=== PATIENT | male | born 1940 | race Caucasian/White ===

== ENCOUNTER 2017-04-08 19:11 | Inpatient (IN) | payer MEDICARE ==
[~2017-04-08] VITALS: Ht 180.3 cm; Wt 102.1 kg
[~2017-04-08 19:11] MED LIST: AMLO-264 PO; BACL-19 PO; CHOL400T2 PO; DOXA2TAB9 PO; METF850T2 PO; METO200T5 PO; PRAV20TA2 PO; SPIR25TA3 PO; SUCR1TAB33 PO; VALS1TAB19 PO
[2017-04-08] MEDS ORDERED: SODIUM CHLORIDE FLUSH 10ML SYR IVF ONE (19:30)
[2017-04-08] MEDS ORDERED: SODIUM CHLORIDE 0.9% 1,000ML IVBOLUS ONE (19:30)
[2017-04-08 19:57] LABS: HEMATOCRIT 39.5 % (39.2-51.8); HEMOGLOBIN 12.3 g/dL (13.7-18.0)
[2017-04-08 19:58] LABS: BLOOD UREA NITROGEN 16 mg/dL (7-18)
[2017-04-08 20:03] LABS: IS PT STATUS REG ER OR PRE ER? YES
[2017-04-08] MEDS ORDERED: SODIUM CHLORIDE 0.9%, 500ML IVBOLUS ONE (21:30)
[2017-04-08] MEDS ORDERED: MAGNESIUM SULFATE PMX 2GM/50ML 50 ML IV ONE (23:00)
[2017-04-08] MEDS ORDERED: GLUCAGON 1 MG IM PRN (23:00)
[2017-04-08] MEDS ORDERED: ONDANSETRON 2MG/ML, 2ML IVPush PRN (23:00)
[2017-04-08] MEDS ORDERED: DEXTROSE 50%, 50ML SYRINGE IVPush PRN (23:00)
[2017-04-08] MEDS ORDERED: DEXTROSE 4 GM TAB.CHEW PO PRN (23:00)
[2017-04-08] MEDS ORDERED: ACETAMINOPHEN 325 MG TABLET PO PRN (23:00)
[2017-04-09] MEDS: PLEASE ENTER WEIGHT MC SCH ×2 (00:56→05:30)
[2017-04-09] MEDS: SODIUM CHLORIDE 0.9% 1,000 ML IV SCH ×3 (02:19→22:43)
[2017-04-09 05:11] LABS: HEMATOCRIT 36.6 % (39.2-51.8); HEMOGLOBIN 11.8 g/dL (13.7-18.0); WHITE BLOOD COUNT 8.8 x10^3/uL (3.4-10)
[2017-04-09 05:21] LABS: BLOOD UREA NITROGEN 15 mg/dL (7-18)
[2017-04-09] MEDS: INSULIN ASPART 100 UNITS/ML, PEN SQ-INSULIN SCH ×4 (07:40→21:47)
[2017-04-09] MEDS ORDERED: ENOXAPARIN 30 MG/0.3 ML SQ SCH (09:00)
[2017-04-09] MEDS: DOXAZOSIN 2MG TABLET PO SCH (09:06)
[2017-04-09] MEDS: SODIUM CHLORIDE FLUSH 10ML SYR IVF SCH ×2 (09:09→21:47)
[2017-04-09] MEDS ORDERED: SODIUM PHOSPHATE 20 MMOL in SODIUM CHLORIDE 0.9% 500 ML IV ONE (12:00)
[2017-04-09] MEDS: CEFTRIAXONE PMX 1GM/50ML 50 ML IV SCH (12:08)
[2017-04-09] MEDS: LACTOBACILLUS CHEW TABLET PO SCH ×3 (12:08→21:46)
[2017-04-09] MEDS: METOPROLOL TARTRATE 25 MG TABLET PO SCH ×2 (12:57→17:33)
[2017-04-09 13:57] VITALS: BP 112/63
[2017-04-09 16:24] VITALS: BP 112/63
[2017-04-09 16:24] LABS: IS PT STATUS REG ER OR PRE ER? NO
[2017-04-09 19:30] VITALS: BP_SYST 107; BP_SYST 78; BP_SYST 86; BP_DIAS 54; BP_DIAS 60; BP_DIAS 67
[2017-04-09 21:01] LABS: IS PT STATUS REG ER OR PRE ER? NO
[2017-04-10 01:38] VITALS: BP 92/61
[2017-04-10] MEDS: METOPROLOL TARTRATE 25 MG TABLET PO SCH (05:49)
[2017-04-10] MEDS: LACTOBACILLUS CHEW TABLET PO SCH ×4 (05:49→21:02)
[2017-04-10 07:06] LABS: HEMATOCRIT 36.1 % (39.2-51.8); HEMOGLOBIN 11.4 g/dL (13.7-18.0); WHITE BLOOD COUNT 5.9 x10^3/uL (3.4-10)
[2017-04-10 07:10] LABS: BLOOD UREA NITROGEN 12 mg/dL (7-18)
[2017-04-10 07:16] LABS: IS PT STATUS REG ER OR PRE ER? NO
[2017-04-10] MEDS: SODIUM CHLORIDE FLUSH 10ML SYR IVF SCH ×2 (08:45→21:02)
[2017-04-10] MEDS: INSULIN ASPART 100 UNITS/ML, PEN SQ-INSULIN SCH ×4 (08:46→20:52)
[2017-04-10] MEDS: DOXAZOSIN 2MG TABLET PO SCH (08:47)
[2017-04-10 09:01] VITALS: BP 99/69
[2017-04-10] MEDS: ENOXAPARIN 40 MG/0.4 ML SQ SCH (09:04)
[2017-04-10] MEDS: SODIUM CHLORIDE 0.9% 1,000 ML IV SCH ×2 (09:04→16:44)
[2017-04-10] MEDS: DIGOXIN 0.25 MG TABLET PO SCH (10:49)
[2017-04-10] MEDS: CEFTRIAXONE PMX 1GM/50ML 50 ML IV SCH (11:01)
[2017-04-10 14:46] VITALS: BP 103/63
[2017-04-10 20:00] VITALS: BP 138/99
[2017-04-11 00:49] VITALS: BP 140/96
[2017-04-11] MEDS: SODIUM CHLORIDE 0.9% 1,000 ML IV SCH ×2 (01:48→09:00)
[2017-04-11] MEDS: LACTOBACILLUS CHEW TABLET PO SCH ×2 (05:27→11:11)
[2017-04-11 05:50] LABS: HEMOGLOBIN 10.7 g/dL (13.7-18.0); WHITE BLOOD COUNT 5.7 x10^3/uL (3.4-10)
[2017-04-11 06:02] LABS: BLOOD UREA NITROGEN 12 mg/dL (7-18)
[2017-04-11] MEDS: INSULIN ASPART 100 UNITS/ML, PEN SQ-INSULIN SCH ×2 (07:00→10:50)
[2017-04-11 07:59] VITALS: BP 148/86
[2017-04-11] MEDS: SODIUM CHLORIDE FLUSH 10ML SYR IVF SCH (09:06)
[2017-04-11] MEDS: DIGOXIN 0.25 MG TABLET PO SCH (09:06)
[2017-04-11] MEDS: ENOXAPARIN 40 MG/0.4 ML SQ SCH (09:07)
[2017-04-11 10:47] VITALS: BP_SYST 114; BP_SYST 133; BP_SYST 90; BP_DIAS 61; BP_DIAS 79; BP_DIAS 80
[2017-04-11] MEDS: CEFTRIAXONE PMX 1GM/50ML 50 ML IV SCH (11:11)
[2017-04-11] MEDS ORDERED: CIPR500T87 PO (12:18)
[2017-04-11] MEDS ORDERED: ACID1TAB7 PO (12:18)
[2017-04-11] MEDS ORDERED: DIGO250T PO (12:18)
[2017-04-11 13:27] VITALS: BP 119/90
== END 2017-04-11 14:21 | disposition home health service (06) | DRG 308 ==
LOC: SUATTDRO 22:33 → ED 23:03 → EDIP 23:10 → 4EST 04-09 08:06 → DCLOUNGE 04-11 13:50
PROVIDERS: ADMIT Hospitalist; ATTEND Hospitalist
DX: I48.0 Paroxysmal atrial fibrillation (principal); J18.9 Pneumonia, unspecified organism; D68.69 Other thrombophilia; E11.22 Type 2 diabetes mellitus with diabetic chronic kidney disease; N18.3 Chronic kidney disease, stage 3 (moderate); E86.1 Hypovolemia; Q21.1 Atrial septal defect; N39.0 Urinary tract infection, site not specified; J98.11 Atelectasis; I95.1 Orthostatic hypotension; W19.XXXA Unspecified fall, initial encounter; E86.9 Volume depletion, unspecified; E78.00 Pure hypercholesterolemia, unspecified; E66.9 Obesity, unspecified; I12.9 Hypertensive chronic kidney disease with stage 1 through stage 4 chronic kidney disease, or unspecified chronic kidney disease; R29.6 Repeated falls; R71.8 Other abnormality of red blood cells; E78.5 Hyperlipidemia, unspecified; K21.9 Gastro-esophageal reflux disease without esophagitis; N40.0 Benign prostatic hyperplasia without lower urinary tract symptoms; Y93.01 Activity, walking, marching and hiking; Y92.000 Kitchen of unspecified non-institutional (private) residence as the place of occurrence of the external cause; Y99.8 Other external cause status; Z82.49 Family history of ischemic heart disease and other diseases of the circulatory system; Z83.3 Family history of diabetes mellitus; Z87.11 Personal history of peptic ulcer disease; Z87.891 Personal history of nicotine dependence; Z98.84 Bariatric surgery status; Z90.49 Acquired absence of other specified parts of digestive tract; Z79.899 Other long term (current) drug therapy; Z68.31 Body mass index [BMI] 31.0-31.9, adult; Z79.84 Long term (current) use of oral hypoglycemic drugs; T46.5X5A Adverse effect of other antihypertensive drugs, initial encounter
CPT/HCPCS: 36415; 71010; 80048; 81001; 82040; 82533; 82607; 82962; 83735; 83880; 84100; 84439; 84443; 84484; 85025; 87086; 93005; 93306; 96361; 96374; J0696; J1650; J1815; J3475; J7030; J7040

== ENCOUNTER → 2017-05-14 | Outpatient (CLI) | payer MEDICARE, OTHER ==
[~2017-05-14] MED LIST changes: +ACID1TAB7 PO; +CIPR500T87 PO; +DIGO250T PO; +REGADENOSON 0.4 MG/5 ML SYRINGE ONE
== END ==
LOC: CFH 08:23
PROVIDERS: ATTEND Internal Medicine Cardiovascular Disease
DX: R07.89 Other chest pain (principal)
CPT/HCPCS: 78452; 93017; A9502; J2785

== ENCOUNTER 2017-05-30 09:50 | Day surgery (SDC) | payer MEDICARE, OTHER ==
[~2017-05-30] VITALS: Ht 180.3 cm; Wt 100.0 kg
[~2017-05-30 09:50] MED LIST changes: -REGADENOSON 0.4 MG/5 ML SYRINGE ONE
[2017-05-30 10:39] VITALS: BP 150/97
[2017-05-30] MEDS ORDERED: METO-282 PO (11:01)
[2017-05-30] MEDS ORDERED: [UNRECOGNIZED DRUG - OTHER] (11:01)
[2017-05-30] MEDS ORDERED: PENT100C2 PO (11:01)
[2017-05-30] MEDS ORDERED: AMLO5TAB2 PO (11:01)
[2017-05-30 11:07] LABS: BASOPHILS # (AUTO) 0.04 x10^3/uL (0-0.1); BASOPHILS % (AUTO) 1 % (0-1); EOSINOPHILS # (AUTO) 0.12 x10^3/uL (0-0.4); EOSINOPHILS % (AUTO) 2 % (1-7); LYMPHOCYTES # (AUTO) 1.87 x10^3/uL (1-3.4); LYMPHOCYTES % (AUTO) 28 % (22-44); MD NO; MEAN CORPUSCULAR HEMOGLOBIN 22.4 pg (27.5-34.5); MEAN CORPUSCULAR HGB CONC 31.2 g/dL (33.2-36.2); MEAN CORPUSCULAR VOLUME 71.9 fL (81-97); MEAN PLATELET VOLUME 9.4 fL (7.4-10.4); MONOCYTES % (AUTO) 10 % (2-9); NEUTROPHILS % (AUTO) 60 % (42-75); PLATELET COUNT 252 x10^3/uL (130-400); RED BLOOD COUNT 4.83 x10^6/uL (4.38-5.82); RED CELL DISTRIBUTION WIDTH 20.3 % (9.4-14.8)
[2017-05-30] MEDS ORDERED: APIX5TAB PO (11:08)
[2017-05-30 11:18] LABS: ANION GAP 6 mmol/L (5-15); CALCIUM 8.2 mg/dL (8.5-10.1); CHLORIDE 103 mmol/L (98-107); CREATININE 1.04 mg/dL (0.7-1.3)
[2017-05-30] MEDS ORDERED: PROPOFOL 10 MG/ML, 20ML ONE (12:03)
== END 2017-05-30 13:21 | disposition home or self-care (01) ==
LOC: CACL 09:50
PROVIDERS: ATTEND Internal Medicine Cardiovascular Disease
DX: I48.2 Chronic atrial fibrillation (principal); I10 Essential (primary) hypertension; E11.9 Type 2 diabetes mellitus without complications; Z79.84 Long term (current) use of oral hypoglycemic drugs; Z87.891 Personal history of nicotine dependence; E66.9 Obesity, unspecified; Z68.30 Body mass index [BMI] 30.0-30.9, adult; Z79.01 Long term (current) use of anticoagulants; E78.2 Mixed hyperlipidemia
CPT/HCPCS: 36415; 80048; 85025; 92960; 93005; J2704

== ENCOUNTER 2018-06-19 09:23 | Emergency (ER) | payer MEDICARE, OTHER ==
[~2018-06-19] VITALS: Ht 180.3 cm; Wt 96.5 kg
[~2018-06-19 09:23] MED LIST changes: +AMIO200T42 PO; +AMIT25TA PO; +AMLO-150 PO; +AMLO10TA8 PO; +APIX5TAB PO; +ASPI500T16 PO; +METF850T10 PO; -METF850T2 PO; +METO-282 PO; +METO200T47 PO; -METO200T5 PO; +PENT100C2 PO; -SPIR25TA3 PO; +SPIR25TA5 PO; +TIMO5DRO28 LEFTEYE; +[UNRECOGNIZED DRUG - OTHER]
--- NOTE | 2018-06-19 10:08 | NUR ---
REPORT FROM CHAKA MICHAEL, ASSUME CARE OF PATIENT AT THIS TIME.
--- NOTE | 2018-06-19 10:29 | NUR ---
UA COLLECTED/SENT TO LAB. PT TO XRAY. PT AND FAMILY UPDATED ON POC. CALL LIGHT WITHIN REACH.
[2018-06-19 10:50] LABS: CULTURE INDICATED? YES; MICROSCOPIC INDICATED
[2018-06-19 11:22] LABS: BASOPHILS # (AUTO) 0.03 x10^3/uL (0-0.1); BASOPHILS % (AUTO) 0 % (0-1); EOSINOPHILS # (AUTO) 0.03 x10^3/uL (0-0.4); EOSINOPHILS % (AUTO) 0 % (1-7); LYMPHOCYTES # (AUTO) 1.56 x10^3/uL (1-3.4); LYMPHOCYTES % (AUTO) 23 % (22-44); MD NO; MEAN CORPUSCULAR HEMOGLOBIN 21.2 pg (27.5-34.5); MEAN CORPUSCULAR HGB CONC 30.2 g/dL (33.2-36.2); MEAN CORPUSCULAR VOLUME 70.1 fL (81-97); MEAN PLATELET VOLUME 8.5 fL (7.4-10.4); MONOCYTES # (AUTO) 0.86 x10^3/uL (0.2-0.8); MONOCYTES % (AUTO) 13 % (2-9); NEUTROPHILS # (AUTO) 4.44 x10^3/uL (1.8-6.8); NEUTROPHILS % (AUTO) 64 % (42-75); PLATELET COUNT 257 x10^3/uL (130-400); RED BLOOD COUNT 4.46 x10^6/uL (4.38-5.82); RED CELL DISTRIBUTION WIDTH 20.9 % (9.4-14.8)
[2018-06-19 11:25] LABS: ALANINE AMINOTRANSFERASE 27 U/L (12-78); ANION GAP 11 mmol/L (5-15); CALCIUM 8.9 mg/dL (8.5-10.1); CHLORIDE 99 mmol/L (98-107)
[2018-06-19 11:28] LABS: ALKALINE PHOSPHATASE 111 U/L (45-117); BILIRUBIN,TOTAL 0.9 mg/dL (0.2-1.0); CREATININE 1.62 mg/dL (0.7-1.3); TOTAL PROTEIN 7.7 g/dL (6.4-8.2)
[2018-06-19] MEDS ORDERED: CEFDINIR 300 MG CAPSULE ONE (11:48)
[2018-06-19] MEDS ORDERED: CEFDINIR 300 MG CAPSULE PO ONE (12:00)
[2018-06-19 12:05] VITALS: BP 158/84
--- NOTE | 2018-06-19 12:08 | NUR ---
PT MEDICATED PER ERP ORDER. PT DISCHARGED HOME, ABLE TO AMBULATE OUT WITH CANE.
== END 2018-06-19 12:11 | disposition home or self-care (01) ==
LOC: ED 11:12
DX: N30.00 Acute cystitis without hematuria (principal); I10 Essential (primary) hypertension; E11.9 Type 2 diabetes mellitus without complications; E78.00 Pure hypercholesterolemia, unspecified; K21.9 Gastro-esophageal reflux disease without esophagitis; Z87.891 Personal history of nicotine dependence
CPT/HCPCS: 36415; 71045; 80053; 81001; 85025; 87086; 93005; 99284

== ENCOUNTER 2018-08-19 13:08 | Inpatient (IN) | payer MEDICARE ==
[~2018-08-19] VITALS: Ht 180.3 cm; Wt 95.8 kg
--- NOTE | 2018-08-19 13:44 | NUR ---
pt presented to ed with shortness of breath and weakness for a few months. pt placed in room and placed on bp, cardiac and cont. pulse oximeter. ekg done in triage. pt with hx: afib and dm. assessment completed. iv started. call light in reach.
[2018-08-19 14:06] LABS: INTERNATIONAL NORMALIZED RATIO 1.11 (0.93-1.1); MEAN CORPUSCULAR HEMOGLOBIN 22.1 pg (27.5-34.5); MEAN CORPUSCULAR HGB CONC 30.5 g/dL (33.2-36.2); MEAN CORPUSCULAR VOLUME 72.4 fL (81-97); MEAN PLATELET VOLUME 8.1 fL (7.4-10.4); PLATELET COUNT 306 x10^3/uL (130-400); PROTHROMBIN TIME 11.6 Seconds (9.6-11.5); RED BLOOD COUNT 4.13 x10^6/uL (4.38-5.82); RED CELL DISTRIBUTION WIDTH 20.6 % (9.4-14.8)
[2018-08-19 14:09] LABS: ALANINE AMINOTRANSFERASE 29 U/L (12-78); ANION GAP 12 mmol/L (5-15); CALCIUM 8.2 mg/dL (8.5-10.1); CHLORIDE 104 mmol/L (98-107); CREATININE 1.06 mg/dL (0.7-1.3)
[2018-08-19 14:13] LABS: ALKALINE PHOSPHATASE 115 U/L (45-117); BILIRUBIN,TOTAL 0.6 mg/dL (0.2-1.0); TOTAL PROTEIN 6.9 g/dL (6.4-8.2); TROPONIN I < 0.015 ng/mL (0.000-0.045)
[2018-08-19 14:27] LABS: MD YES
[2018-08-19 14:35] LABS: BASOS#(MANUAL) 0.16 x10^3/uL (0-0.1); BASOS% (MANUAL) 2 % (0-1); EOS#(MANUAL) 0.32 x10^3/uL (0.0-0.4); EOS% (MANUAL) 4 % (1-7); LYMPH#(MANUAL) 1.54 x10^3/uL (1-3.4); LYMPHS% (MANUAL) 19 % (22-44); MONOS#(MANUAL) 0.65 x10^3/uL (0.3-2.7); MONOS% (MANUAL) 8 % (2-9); NRBC % (MANUAL) 1 % (0-1); REACTIVE LYMPHS # (MANUAL) 0.08 x10^3/uL (0-0); REACTIVE LYMPHS % (MANUAL) 1 % (0-0); SEG#(MANUAL) 5.35 x10^3/uL (1.8-6.8); SEGS% (MANUAL) 66 % (42-75)
[2018-08-19 14:36] LABS: ANISOCYTOSIS 1+; HYPOCHROMIA 1+; OVALOCYTES 1+
[2018-08-19 14:37] LABS: <PLATELET ESTIMATE> ADEQUATE; <PLT MORPHOLOGY> NORMAL PLT MORPH
--- NOTE | 2018-08-19 15:30 | NUR ---
pt restingin bed.
[2018-08-19 15:54] LABS: MICROSCOPIC INDICATED
--- NOTE | 2018-08-19 16:11 | NUR ---
pt taken to ct scan
[2018-08-19 16:21] LABS: CULTURE INDICATED? NO
[2018-08-19] MEDS ORDERED: OMNIPAQUE 350 MG/ML, 100ML BOTTLE ONE (16:29)
[2018-08-19] MEDS ORDERED: AZITHROMYCIN 500 MG in SODIUM CHLORIDE 0.9% 250 ML IV ONE (17:00)
[2018-08-19] MEDS ORDERED: CEFTRIAXONE PMX 1GM/50ML 50 ML IV ONE (17:00)
--- NOTE | 2018-08-19 17:06 | NUR ---
HOSPITALIST AT BEDSIDE.
--- NOTE | 2018-08-19 17:12 | NUR ---
PT DESATS WITH ANY EXERTION.
[2018-08-19] MEDS ORDERED: SODIUM CHLORIDE 0.9% 1,000 ML IV SCH (17:13)
[2018-08-19] MEDS ORDERED: CEFTRIAXONE PMX 1GM/50ML 50 ML ONE (17:16)
--- NOTE | 2018-08-19 17:18 | NUR ---
report given to jesus manuel parikh. blood cultures drawn x 2 and antibiotics hung per md order
[2018-08-19] MEDS: INSULIN LISPRO 100 UNITS/ML, PEN SQ-INSULIN SCH ×2 (17:30→22:01)
[2018-08-19] MEDS ORDERED: ONDANSETRON ODT 4 MG PO PRN (17:30)
[2018-08-19] MEDS ORDERED: ACETAMINOPHEN 325 MG TABLET PO PRN (17:30)
[2018-08-19] MEDS ORDERED: LORazepam 2 MG/ML, 1ML IVPush PRN (18:00)
[2018-08-19] MEDS: TIMOLOL MC SCH (18:00)
[2018-08-19] MEDS: [UNRECOGNIZED DRUG - OTHER] MC SCH (18:00)
[2018-08-19] MEDS ORDERED: ENOXAPARIN 40 MG/0.4 ML SQ SCH (18:00)
[2018-08-19] MEDS ORDERED: ONDANSETRON 2MG/ML, 2ML IVPush PRN (18:00)
[2018-08-19 18:28] LABS: % IRON SATURATION 5 % (20-55); IRON LEVEL 23 mcg/dL (65-175); TOTAL IRON BINDING CAPACITY 437 mcg/dL (250-450); TRANSFERRIN 340 mg/dL (200-360)
[2018-08-19 18:31] LABS: TROPONIN I < 0.015 ng/mL (0.000-0.045)
[2018-08-19 19:09] VITALS: BP 177/81
[2018-08-19 19:30] LABS: HEMOGLOBIN A1C 6.6 % (4.2-6.3)
[2018-08-19] MEDS: DOXYCYCLINE 100 MG in DEXTROSE 5% 250 ML IV SCH (19:43)
[2018-08-19] MEDS: APIXABAN 5 MG TABLET PO SCH (20:50)
[2018-08-19] MEDS ORDERED: ALBUTEROL SULFATE 2.5 MG/3 ML NPPB PRN (21:00)
[2018-08-19] MEDS: PENTOSAN POLYSULFATE SODIUM 200 MG HOMEMEDPO SCH (21:00)
[2018-08-19 22:04] LABS: RAPID INFLUENZA A Negative (Negative); RAPID INFLUENZA B Negative (Negative)
[2018-08-19 23:44] LABS: TROPONIN I < 0.015 ng/mL (0.000-0.045)
[2018-08-20 03:54] VITALS: BP 171/77
[2018-08-20 05:25] LABS: BASOPHILS # (AUTO) 0.01 x10^3/uL (0-0.1); BASOPHILS % (AUTO) 0 % (0-1); EOSINOPHILS # (AUTO) 0.17 x10^3/uL (0-0.4); EOSINOPHILS % (AUTO) 2 % (1-7); LYMPHOCYTES # (AUTO) 0.97 x10^3/uL (1-3.4); LYMPHOCYTES % (AUTO) 12 % (22-44); MD NO; MEAN CORPUSCULAR HEMOGLOBIN 21.9 pg (27.5-34.5); MEAN CORPUSCULAR HGB CONC 30.6 g/dL (33.2-36.2); MEAN CORPUSCULAR VOLUME 71.8 fL (81-97); MEAN PLATELET VOLUME 8.3 fL (7.4-10.4); MONOCYTES # (AUTO) 1.26 x10^3/uL (0.2-0.8); MONOCYTES % (AUTO) 15 % (2-9); NEUTROPHILS # (AUTO) 5.89 x10^3/uL (1.8-6.8); NEUTROPHILS % (AUTO) 71 % (42-75); PLATELET COUNT 284 x10^3/uL (130-400); RED BLOOD COUNT 3.72 x10^6/uL (4.38-5.82); RED CELL DISTRIBUTION WIDTH 20.2 % (9.4-14.8)
[2018-08-20 05:28] LABS: ALANINE AMINOTRANSFERASE 23 U/L (12-78); ALBUMIN 2.6 g/dL (3.4-5.0); CALCIUM 7.7 mg/dL (8.5-10.1); CHOLESTEROL, TOTAL 103 mg/dL (140-239); CREATININE 0.97 mg/dL (0.7-1.3)
[2018-08-20 05:39] LABS: ALKALINE PHOSPHATASE 100 U/L (45-117); ANION GAP 7 mmol/L (5-15); BILIRUBIN,TOTAL 0.9 mg/dL (0.2-1.0); CHLORIDE 103 mmol/L (98-107); CHOL/HDL RATIO 2.5; HDL CHOL % 40 % (26-37); HDL CHOLESTEROL (DIRECT) 41 mg/dL (40-60); LDL CHOLESTEROL,CALCULATED 46 mg/dL (54-169); LDL/HDL RATIO 1.1 (0.5-3.0); TOTAL PROTEIN 6.1 g/dL (6.4-8.2); TRIGLYCERIDES 79 mg/dL (50-200); VLDL CHOLESTEROL 16 mg/dL (0-25)
[2018-08-20] MEDS: DOXYCYCLINE 100 MG in DEXTROSE 5% 250 ML IV SCH ×2 (05:48→18:22)
[2018-08-20 06:45] VITALS: BP 179/78
[2018-08-20] MEDS ORDERED: SODIUM CHLORIDE 0.9% 1,000 ML IV SCH ×2 (07:30→13:47)
[2018-08-20] MEDS: TIMOLOL MC SCH ×2 (08:00→13:54)
[2018-08-20] MEDS: [UNRECOGNIZED DRUG - OTHER] MC SCH ×2 (08:00→13:54)
[2018-08-20] MEDS: PENTOSAN POLYSULFATE SODIUM 200 MG HOMEMEDPO SCH ×2 (09:00→20:53)
[2018-08-20] MEDS: TIMOLOL OPHTH 0.5%, 5ML LEFTEYE SCH (09:00)
[2018-08-20] MEDS ORDERED: AMLODIPINE 5 MG TABLET PO SCH (09:00)
[2018-08-20] MEDS: VANCOMYCIN 50 MG/ML ORAL SUSP PO SCH ×2 (09:36→19:24)
[2018-08-20] MEDS: INSULIN LISPRO 100 UNITS/ML, PEN SQ-INSULIN SCH ×4 (09:37→21:02)
[2018-08-20] MEDS: FERROUS SULFATE 325 MG TABLET PO SCH (09:37)
[2018-08-20] MEDS: METOPROLOL SUCCINATE 50 MG TAB.ER.24H PO SCH (09:38)
[2018-08-20] MEDS: FOLIC ACID 1 MG TABLET PO SCH (09:38)
[2018-08-20] MEDS: THIAMINE 100MG TABLET PO SCH (09:38)
[2018-08-20] MEDS: AMIODARONE 200 MG TABLET PO SCH (09:38)
[2018-08-20] MEDS: APIXABAN 5 MG TABLET PO SCH ×2 (09:38→21:01)
[2018-08-20 12:25] VITALS: BP 160/80
[2018-08-20] MEDS: GUAIFENESIN 200 MG TABLET PO SCH ×3 (12:50→21:01)
[2018-08-20 15:48] LABS: OCCULT BLOOD POSITIVE (NEGATIVE)
[2018-08-20] MEDS: CEFTRIAXONE PMX 1GM/50ML 50 ML IV SCH (16:41)
[2018-08-20 18:50] VITALS: BP 181/82
[2018-08-20 20:00] VITALS: BP 174/80
[2018-08-20] MEDS ORDERED: hydrALAzine 20 MG/ML, 1ML IV ONE (20:00)
[2018-08-20] MEDS ORDERED: AMITRIPTYLINE 25 MG TABLET PO SCH ×2 (21:00)
[2018-08-20] MEDS: AMITRIPTYLINE 25 MG TABLET PO PRN (21:01)
[2018-08-21 00:50] VITALS: BP 160/87
[2018-08-21] MEDS: GUAIFENESIN 200 MG TABLET PO SCH ×4 (05:07→21:13)
[2018-08-21] MEDS: DOXYCYCLINE 100 MG in DEXTROSE 5% 250 ML IV SCH ×2 (05:36→19:10)
[2018-08-21 05:50] LABS: BASOPHILS # (AUTO) 0.05 x10^3/uL (0-0.1); BASOPHILS % (AUTO) 1 % (0-1); EOSINOPHILS # (AUTO) 0.27 x10^3/uL (0-0.4); EOSINOPHILS % (AUTO) 3 % (1-7); LYMPHOCYTES # (AUTO) 1.45 x10^3/uL (1-3.4); LYMPHOCYTES % (AUTO) 14 % (22-44); MD NO; MEAN CORPUSCULAR HEMOGLOBIN 22.1 pg (27.5-34.5); MEAN CORPUSCULAR HGB CONC 30.6 g/dL (33.2-36.2); MEAN CORPUSCULAR VOLUME 72.3 fL (81-97); MEAN PLATELET VOLUME 8.4 fL (7.4-10.4); MONOCYTES # (AUTO) 1.29 x10^3/uL (0.2-0.8); MONOCYTES % (AUTO) 13 % (2-9); NEUTROPHILS # (AUTO) 7.26 x10^3/uL (1.8-6.8); NEUTROPHILS % (AUTO) 70 % (42-75); PLATELET COUNT 293 x10^3/uL (130-400); RED BLOOD COUNT 3.97 x10^6/uL (4.38-5.82); RED CELL DISTRIBUTION WIDTH 20.3 % (9.4-14.8)
[2018-08-21 05:58] LABS: CHLORIDE 106 mmol/L (98-107)
[2018-08-21 06:11] LABS: ALANINE AMINOTRANSFERASE 28 U/L (12-78); ALBUMIN 2.7 g/dL (3.4-5.0); ALKALINE PHOSPHATASE 97 U/L (45-117); ANION GAP 6 mmol/L (5-15); BILIRUBIN,TOTAL 0.8 mg/dL (0.2-1.0); CALCIUM 8.1 mg/dL (8.5-10.1); CREATININE 0.94 mg/dL (0.7-1.3); TOTAL PROTEIN 6.5 g/dL (6.4-8.2)
[2018-08-21 06:44] VITALS: BP 156/81
[2018-08-21] MEDS: INSULIN LISPRO 100 UNITS/ML, PEN SQ-INSULIN SCH ×4 (07:00→21:14)
[2018-08-21] MEDS: TIMOLOL MC SCH ×2 (07:00→15:00)
[2018-08-21] MEDS: [UNRECOGNIZED DRUG - OTHER] MC SCH ×2 (07:00→15:00)
[2018-08-21] MEDS: AMIODARONE 200 MG TABLET PO SCH (08:46)
[2018-08-21] MEDS: VANCOMYCIN 50 MG/ML ORAL SUSP PO SCH ×2 (08:46→19:49)
[2018-08-21] MEDS: AMLODIPINE 10 MG TAB PO SCH (08:46)
[2018-08-21] MEDS: LISINOPRIL 10 MG TABLET PO SCH ×2 (08:46→21:13)
[2018-08-21] MEDS: FERROUS SULFATE 325 MG TABLET PO SCH (08:47)
[2018-08-21] MEDS: THIAMINE 100MG TABLET PO SCH (08:47)
[2018-08-21] MEDS: METOPROLOL SUCCINATE 50 MG TAB.ER.24H PO SCH (08:47)
[2018-08-21] MEDS: APIXABAN 5 MG TABLET PO SCH ×2 (08:47→21:13)
[2018-08-21] MEDS: PENTOSAN POLYSULFATE SODIUM 200 MG HOMEMEDPO SCH ×2 (08:49→21:00)
[2018-08-21] MEDS: TIMOLOL OPHTH 0.5%, 5ML LEFTEYE SCH (08:50)
[2018-08-21] MEDS: FOLIC ACID 1 MG TABLET PO SCH (08:58)
[2018-08-21 12:04] VITALS: BP 138/73
[2018-08-21] MEDS: CEFTRIAXONE PMX 1GM/50ML 50 ML IV SCH (18:09)
[2018-08-21 19:12] VITALS: BP 148/74
[2018-08-21] MEDS: AMITRIPTYLINE 25 MG TABLET PO PRN (21:13)
[2018-08-22 00:31] VITALS: BP 152/80
[2018-08-22] MEDS: GUAIFENESIN 200 MG TABLET PO SCH ×4 (05:20→21:55)
[2018-08-22 05:44] LABS: MEAN CORPUSCULAR HEMOGLOBIN 22.4 pg (27.5-34.5); MEAN CORPUSCULAR HGB CONC 30.8 g/dL (33.2-36.2); MEAN CORPUSCULAR VOLUME 72.5 fL (81-97); MEAN PLATELET VOLUME 8.4 fL (7.4-10.4); PLATELET COUNT 259 x10^3/uL (130-400); RED BLOOD COUNT 3.68 x10^6/uL (4.38-5.82); RED CELL DISTRIBUTION WIDTH 20.6 % (9.4-14.8)
[2018-08-22 06:40] VITALS: BP 154/75
[2018-08-22] MEDS: DOXYCYCLINE 100 MG in DEXTROSE 5% 250 ML IV SCH (06:44)
[2018-08-22 06:51] LABS: MD YES
[2018-08-22 06:53] LABS: EOS#(MANUAL) 0.36 x10^3/uL (0.0-0.4); EOS% (MANUAL) 4 % (1-7); LYMPH#(MANUAL) 1.25 x10^3/uL (1-3.4); LYMPHS% (MANUAL) 14 % (22-44); MONOS#(MANUAL) 0.53 x10^3/uL (0.3-2.7); MONOS% (MANUAL) 6 % (2-9); SEG#(MANUAL) 6.85 x10^3/uL (1.8-6.8); SEGS% (MANUAL) 76 % (42-75)
[2018-08-22 06:54] LABS: ANISOCYTOSIS 1+; HYPOCHROMIA 1+; MICROCYTOSIS 1+; POLYCHROMASIA 1+
[2018-08-22 06:55] LABS: <PLATELET ESTIMATE> ADEQUATE; <PLT MORPHOLOGY> NORMAL PLT MORPH; OVALOCYTES 1+
[2018-08-22] MEDS: INSULIN LISPRO 100 UNITS/ML, PEN SQ-INSULIN SCH ×4 (07:00→20:37)
[2018-08-22] MEDS: TIMOLOL OPHTH 0.5%, 5ML LEFTEYE SCH (09:00)
[2018-08-22] MEDS: PENTOSAN POLYSULFATE SODIUM 200 MG HOMEMEDPO SCH ×2 (09:00→21:00)
[2018-08-22] MEDS: VANCOMYCIN 50 MG/ML ORAL SUSP PO SCH ×2 (10:05→21:53)
[2018-08-22] MEDS: AMLODIPINE 10 MG TAB PO SCH (10:06)
[2018-08-22] MEDS: LISINOPRIL 10 MG TABLET PO SCH ×2 (10:06→21:55)
[2018-08-22] MEDS: AMOXICILLIN/CLAV 875-125MG TABLET PO SCH ×2 (10:06→21:55)
[2018-08-22] MEDS: APIXABAN 5 MG TABLET PO SCH ×2 (10:06→22:02)
[2018-08-22] MEDS: METOPROLOL SUCCINATE 50 MG TAB.ER.24H PO SCH (10:06)
[2018-08-22] MEDS: DOXYCYCLINE 100MG TABLET PO SCH ×2 (10:07→21:54)
[2018-08-22] MEDS: FERROUS SULFATE 325 MG TABLET PO SCH (10:07)
[2018-08-22] MEDS: THIAMINE 100MG TABLET PO SCH (10:07)
[2018-08-22] MEDS: AMIODARONE 200 MG TABLET PO SCH (10:07)
[2018-08-22] MEDS: FOLIC ACID 1 MG TABLET PO SCH (10:07)
[2018-08-22 13:45] VITALS: BP 120/74
[2018-08-22 19:43] VITALS: BP 134/75
[2018-08-22] MEDS: AMITRIPTYLINE 25 MG TABLET PO PRN (21:56)
[2018-08-23 01:36] VITALS: BP 127/71
[2018-08-23] MEDS: GUAIFENESIN 200 MG TABLET PO SCH ×3 (06:04→16:25)
[2018-08-23] MEDS: INSULIN LISPRO 100 UNITS/ML, PEN SQ-INSULIN SCH ×3 (07:00→16:00)
[2018-08-23 07:56] VITALS: BP 117/72
[2018-08-23] MEDS: FERROUS SULFATE 325 MG TABLET PO SCH (08:01)
[2018-08-23] MEDS: FOLIC ACID 1 MG TABLET PO SCH (08:02)
[2018-08-23] MEDS: METOPROLOL SUCCINATE 50 MG TAB.ER.24H PO SCH (08:02)
[2018-08-23] MEDS: APIXABAN 5 MG TABLET PO SCH (08:02)
[2018-08-23] MEDS: DOXYCYCLINE 100MG TABLET PO SCH (08:02)
[2018-08-23] MEDS: AMLODIPINE 10 MG TAB PO SCH (08:03)
[2018-08-23] MEDS: LISINOPRIL 10 MG TABLET PO SCH (08:03)
[2018-08-23] MEDS: AMOXICILLIN/CLAV 875-125MG TABLET PO SCH (08:03)
[2018-08-23] MEDS: THIAMINE 100MG TABLET PO SCH (08:04)
[2018-08-23] MEDS: PENTOSAN POLYSULFATE SODIUM 200 MG HOMEMEDPO SCH (08:07)
[2018-08-23] MEDS: TIMOLOL OPHTH 0.5%, 5ML LEFTEYE SCH (08:07)
[2018-08-23] MEDS: AMIODARONE 200 MG TABLET PO SCH (08:11)
[2018-08-23] MEDS: VANCOMYCIN 50 MG/ML ORAL SUSP PO SCH (10:38)
[2018-08-23 13:34] VITALS: BP 127/66
[2018-08-23] MEDS ORDERED: VANC1VIA3 PO (14:17)
[2018-08-23] MEDS ORDERED: DOXY100T PO (14:17)
[2018-08-23] MEDS ORDERED: FERR-51 PO (14:17)
[2018-08-23] MEDS ORDERED: GUAI200T3 PO (14:17)
[2018-08-23] MEDS ORDERED: AMOX1TAB12 PO (14:17)
[2018-08-23] MEDS ORDERED: LISI-167 PO (14:17)
== END 2018-08-23 20:26 | disposition home or self-care (01) | DRG 193 ==
LOC: ED 15:00 → EDIP 16:41 → 3NE 17:30
PROVIDERS: ADMIT Internal Medicine; ATTEND Internal Medicine
DX: J18.9 Pneumonia, unspecified organism (principal); J96.01 Acute respiratory failure with hypoxia; E87.2 Acidosis; D68.69 Other thrombophilia; D50.9 Iron deficiency anemia, unspecified; E11.9 Type 2 diabetes mellitus without complications; I10 Essential (primary) hypertension; I48.91 Unspecified atrial fibrillation; K21.9 Gastro-esophageal reflux disease without esophagitis; K27.9 Peptic ulcer, site unspecified, unspecified as acute or chronic, without hemorrhage or perforation; R19.5 Other fecal abnormalities; R35.0 Frequency of micturition; N40.1 Benign prostatic hyperplasia with lower urinary tract symptoms; Z79.01 Long term (current) use of anticoagulants; Z82.49 Family history of ischemic heart disease and other diseases of the circulatory system; Z83.3 Family history of diabetes mellitus; Z87.11 Personal history of peptic ulcer disease; Z87.891 Personal history of nicotine dependence; Z98.84 Bariatric surgery status; Z90.49 Acquired absence of other specified parts of digestive tract
CPT/HCPCS: 36415; 71045; 71275; 80053; 80061; 81001; 82272; 82728; 82962; 83036; 83540; 83550; 83605; 83880; 84145; 84439; 84443; 84466; 84484; 85025; 85610; 87040; 87400; 93005; 93306; 96374; G0378; J0696; J3370; J7060; J7613; Q9967; J0360; J1815; J7030

== ENCOUNTER 2018-08-25 11:48 | Inpatient (IN) | payer MEDICARE ==
[~2018-08-25] VITALS: Ht 180.3 cm; Wt 93.9 kg
[~2018-08-25 11:48] MED LIST changes: +AMOX1TAB12 PO; +DOXY100T PO; +FERR-51 PO; +GUAI200T3 PO; +LISI-167 PO; +VANC1VIA3 PO
[2018-08-25] MEDS ORDERED: SODIUM CHLORIDE FLUSH 10ML SYR IVF ONE ×2 (12:30→13:00)
--- NOTE | 2018-08-25 12:34 | NUR ---
MD IS AT THE BEDSIDE FOR CONSULT/ASSESSMENT
--- NOTE | 2018-08-25 12:40 | NUR ---
(+) OCCULT STOOL AT THE BEDSIDE
[2018-08-25 12:42] LABS: ALANINE AMINOTRANSFERASE 47 U/L (12-78); ALBUMIN 2.5 g/dL (3.4-5.0); ANION GAP 9 mmol/L (5-15); CALCIUM 8.1 mg/dL (8.5-10.1); CHLORIDE 109 mmol/L (98-107); CREATININE 1.32 mg/dL (0.7-1.3)
[2018-08-25 12:45] LABS: ALKALINE PHOSPHATASE 98 U/L (45-117); BILIRUBIN,TOTAL 0.4 mg/dL (0.2-1.0); TOTAL PROTEIN 6.6 g/dL (6.4-8.2)
[2018-08-25] MEDS ORDERED: PANTOPRAZOLE 40 MG IV ONE (12:53)
[2018-08-25 12:58] LABS: INTERNATIONAL NORMALIZED RATIO 1.09 (0.93-1.1); PROTHROMBIN TIME 11.4 Seconds (9.6-11.5)
[2018-08-25 13:00] LABS: MEAN CORPUSCULAR HEMOGLOBIN 22.7 pg (27.5-34.5); MEAN CORPUSCULAR HGB CONC 30.5 g/dL (33.2-36.2); MEAN CORPUSCULAR VOLUME 74.6 fL (81-97); MEAN PLATELET VOLUME 8.4 fL (7.4-10.4); PLATELET COUNT 350 x10^3/uL (130-400); RED BLOOD COUNT 3.67 x10^6/uL (4.38-5.82); RED CELL DISTRIBUTION WIDTH 22.5 % (9.4-14.8)
[2018-08-25] MEDS ORDERED: PANTOPRAZOLE 40 MG IV IVPush ONE ×2 (13:00→14:30)
[2018-08-25 13:06] LABS: TROPONIN I < 0.015 ng/mL (0.000-0.045)
[2018-08-25 13:45] LABS: MD YES
[2018-08-25 13:46] LABS: EOS#(MANUAL) 0.91 x10^3/uL (0.0-0.4); EOS% (MANUAL) 10 % (1-7); LYMPH#(MANUAL) 1.82 x10^3/uL (1-3.4); LYMPHS% (MANUAL) 20 % (22-44); MONOS#(MANUAL) 0.91 x10^3/uL (0.3-2.7); MONOS% (MANUAL) 10 % (2-9); SEG#(MANUAL) 5.46 x10^3/uL (1.8-6.8); SEGS% (MANUAL) 60 % (42-75)
[2018-08-25 13:47] LABS: <PLATELET ESTIMATE> ADEQUATE; <PLT MORPHOLOGY> NORMAL PLT MORPH; ANISOCYTOSIS 1+; HYPOCHROMIA 1+; MICROCYTOSIS 1+; OVALOCYTES 1+; POLYCHROMASIA 1+
--- NOTE | 2018-08-25 14:23 | NUR ---
pt resting comfortably on an e.r. gurney. we are awaiting a room assignment for admission. vs are stable and wdl, and i will continue to monitor and treat as ordered, as well as prn.
[2018-08-25] MEDS ORDERED: PANTOPRAZOLE 80 MG in SODIUM CHLORIDE 0.9% 100 ML IV SCH (14:30)
[2018-08-25] MEDS ORDERED: LABETALOL 5 MG/ML SYRINGE IVPush PRN (15:30)
[2018-08-25] MEDS ORDERED: hydrALAzine 20 MG/ML, 1ML IVPush PRN (15:30)
[2018-08-25] MEDS ORDERED: ONDANSETRON 2MG/ML, 2ML IVPush PRN (15:30)
[2018-08-25] MEDS ORDERED: ONDANSETRON ODT 4 MG PO PRN (15:30)
[2018-08-25] MEDS ORDERED: LIDODERM 5% PATCH TD PRN (15:30)
[2018-08-25] MEDS ORDERED: LORazepam 2 MG/ML, 1ML IVPush PRN (15:30)
[2018-08-25] MEDS: INSULIN LISPRO 100 UNITS/ML, PEN SQ-INSULIN SCH ×2 (16:00→21:00)
[2018-08-25 16:25] LABS: HEMOGLOBIN A1C 6.2 % (4.2-6.3)
--- NOTE | 2018-08-25 17:13 | NUR ---
verbal sbar report was exchanged w julián (rn) on the floor for admission. we will begin to prepare for transport at this time.
[2018-08-25 18:00] VITALS: BP 170/80
[2018-08-25 19:17] VITALS: BP 168/73
[2018-08-25 19:20] LABS: FREE T4 (FREE THYROXINE) 1.25 ng/dL (0.76-1.46); TROPONIN I < 0.015 ng/mL (0.000-0.045)
[2018-08-25 19:21] LABS: CLOSTRIDIUM DIFFICILE ANTIGEN NEGATIVE; CLOSTRIDIUM DIFFICILE TOXIN NEGATIVE (Negative)
[2018-08-25] MEDS: GUAIFENESIN 200 MG TABLET PO SCH ×2 (21:00→21:42)
[2018-08-25] MEDS ORDERED: PENTOSAN POLYSULFATE SODIUM 200 MG PO SCH (21:00)
[2018-08-25] MEDS: AMOXICILLIN/CLAV 875-125MG TABLET PO SCH (21:42)
[2018-08-25] MEDS: DOXYCYCLINE 100MG TABLET PO SCH (21:42)
[2018-08-25] MEDS: ZOLPIDEM 5MG TABLET PO PRN (22:45)
[2018-08-26] MEDS: PANTOPRAZOLE 80 MG in SODIUM CHLORIDE 0.9% 100 ML IV SCH ×2 (00:05→11:38)
[2018-08-26] MEDS: VANCOMYCIN 50 MG/ML ORAL SUSP PO SCH ×3 (00:05→21:15)
[2018-08-26] MEDS: POTASSIUM CHLORIDE 20 MEQ, MAGNESIUM SULFATE 2 GM, THIAMINE 200 MG, MVI ADULT 10 ML, FO... IV SCH ×2 (00:42→12:37)
[2018-08-26 01:01] VITALS: BP 117/68
[2018-08-26 01:10] LABS: TROPONIN I < 0.015 ng/mL (0.000-0.045)
[2018-08-26 05:51] LABS: ANION GAP 8 mmol/L (5-15); CALCIUM 7.7 mg/dL (8.5-10.1); CHLORIDE 110 mmol/L (98-107); CHOLESTEROL, TOTAL 88 mg/dL (140-239); CREATININE 1.12 mg/dL (0.7-1.3)
[2018-08-26 05:54] LABS: CHOL/HDL RATIO 4.6; HDL CHOL % 22 % (26-37); HDL CHOLESTEROL (DIRECT) 19 mg/dL (40-60); LDL CHOLESTEROL,CALCULATED 49 mg/dL (54-169); LDL/HDL RATIO 2.6 (0.5-3.0); TRIGLYCERIDES 98 mg/dL (50-200); VLDL CHOLESTEROL 20 mg/dL (0-25)
[2018-08-26 05:55] LABS: MEAN CORPUSCULAR HEMOGLOBIN 22.8 pg (27.5-34.5); MEAN CORPUSCULAR HGB CONC 30.8 g/dL (33.2-36.2); MEAN CORPUSCULAR VOLUME 73.9 fL (81-97); MEAN PLATELET VOLUME 8.4 fL (7.4-10.4); PLATELET COUNT 348 x10^3/uL (130-400); RED BLOOD COUNT 3.47 x10^6/uL (4.38-5.82); RED CELL DISTRIBUTION WIDTH 22.2 % (9.4-14.8)
[2018-08-26] MEDS: GUAIFENESIN 200 MG TABLET PO SCH ×4 (06:03→21:09)
[2018-08-26 06:22] LABS: MD YES
[2018-08-26 06:27] LABS: ANISOCYTOSIS 1+; BAND#(MANUAL) 0.08 x10^3/uL; BANDS%(MANUAL) 1 % (0-7); BASOS#(MANUAL) 0.08 x10^3/uL (0-0.1); BASOS% (MANUAL) 1 % (0-1); EOS#(MANUAL) 0.48 x10^3/uL (0.0-0.4); EOS% (MANUAL) 6 % (1-7); LYMPHS% (MANUAL) 20 % (22-44); MONOS#(MANUAL) 0.96 x10^3/uL (0.3-2.7); MONOS% (MANUAL) 12 % (2-9); SEGS% (MANUAL) 60 % (42-75)
[2018-08-26 06:28] LABS: <PLATELET ESTIMATE> ADEQUATE; <PLT MORPHOLOGY> NORMAL PLT MORPH; HYPOCHROMIA 1+; OVALOCYTES 1+; POLYCHROMASIA 1+
[2018-08-26] MEDS: INSULIN LISPRO 100 UNITS/ML, PEN SQ-INSULIN SCH ×4 (08:22→20:54)
[2018-08-26] MEDS: AMOXICILLIN/CLAV 875-125MG TABLET PO SCH ×2 (08:25→21:09)
[2018-08-26] MEDS: METOPROLOL SUCCINATE 50 MG TAB.ER.24H PO SCH (08:25)
[2018-08-26] MEDS: DOXYCYCLINE 100MG TABLET PO SCH ×2 (08:25→21:09)
[2018-08-26] MEDS: AMLODIPINE 5 MG TABLET PO SCH (08:25)
[2018-08-26] MEDS: FERROUS SULFATE 325 MG TABLET PO SCH (08:25)
[2018-08-26] MEDS: TIMOLOL OPHTH 0.5%, 5ML LEFTEYE SCH (08:27)
[2018-08-26] MEDS: AMIODARONE 200 MG TABLET PO SCH (08:32)
[2018-08-26 09:31] VITALS: BP 148/76
[2018-08-26] MEDS ORDERED: PROPOFOL 10 MG/ML, 50ML ONE (15:03)
[2018-08-26] MEDS ORDERED: FENTANYL PF 100 MCG/2ML IV PRN (15:30)
[2018-08-26] MEDS ORDERED: OXYcodone 5 MG/5 ML ORAL.SOL UDC PO PRN (15:30)
[2018-08-26] MEDS ORDERED: HYDROmorphone 2 MG/ML, 1ML IVPush PRN (15:30)
[2018-08-26] MEDS ORDERED: ACETAMINOPHEN 325 MG TABLET PO PRN (15:30)
[2018-08-26] MEDS ORDERED: hydrALAzine 20 MG/ML, 1ML IV PRN (15:30)
[2018-08-26] MEDS ORDERED: ALBUTEROL SULFATE 2.5 MG/3 ML NPPB PRN (15:30)
[2018-08-26] MEDS ORDERED: MEPERIDINE/PF 25MG/0.5ML IVPush PRN (15:30)
[2018-08-26] MEDS ORDERED: KETOROLAC 30 MG/1 ML IV PRN (15:30)
[2018-08-26] MEDS ORDERED: DIAZEPAM 5 MG/ML, 2ML IVPush PRN (15:30)
[2018-08-26] MEDS ORDERED: LABETALOL 5MG/ML, 20ML IV PRN (15:30)
[2018-08-26] MEDS ORDERED: PROMETHAZINE 25 MG/ML, 1ML IV PRN (15:30)
[2018-08-26 15:59] VITALS: BP 160/76
[2018-08-26] MEDS: PANTOPROZOLE 40MG TABLET PO SCH (18:18)
[2018-08-26 19:31] VITALS: BP 130/51
[2018-08-26] MEDS: ZOLPIDEM 5MG TABLET PO PRN (21:09)
[2018-08-27 01:12] VITALS: BP 125/75
[2018-08-27] MEDS: GUAIFENESIN 200 MG TABLET PO SCH ×4 (05:37→20:50)
[2018-08-27] MEDS: PANTOPROZOLE 40MG TABLET PO SCH ×2 (05:37→16:49)
[2018-08-27] MEDS: INSULIN LISPRO 100 UNITS/ML, PEN SQ-INSULIN SCH ×4 (07:00→21:29)
[2018-08-27 07:20] LABS: ANION GAP 4 mmol/L (5-15); CALCIUM 7.7 mg/dL (8.5-10.1); CHLORIDE 111 mmol/L (98-107); CREATININE 1.15 mg/dL (0.7-1.3); MEAN CORPUSCULAR HEMOGLOBIN 22.1 pg (27.5-34.5); MEAN CORPUSCULAR VOLUME 73.7 fL (81-97); MEAN PLATELET VOLUME 8.7 fL (7.4-10.4); PLATELET COUNT 351 x10^3/uL (130-400); RED BLOOD COUNT 3.54 x10^6/uL (4.38-5.82); RED CELL DISTRIBUTION WIDTH 22.8 % (9.4-14.8)
[2018-08-27 07:36] LABS: BASOPHILS # (AUTO) 0.06 x10^3/uL (0-0.1); BASOPHILS % (AUTO) 1 % (0-1); EOSINOPHILS # (AUTO) 0.47 x10^3/uL (0-0.4); EOSINOPHILS % (AUTO) 6 % (1-7); LYMPHOCYTES # (AUTO) 1.46 x10^3/uL (1-3.4); LYMPHOCYTES % (AUTO) 20 % (22-44); MD SCAN; MONOCYTES # (AUTO) 1.07 x10^3/uL (0.2-0.8); MONOCYTES % (AUTO) 15 % (2-9); NEUTROPHILS # (AUTO) 4.27 x10^3/uL (1.8-6.8); NEUTROPHILS % (AUTO) 58 % (42-75)
[2018-08-27 07:42] VITALS: BP 121/69
[2018-08-27] MEDS: FERROUS SULFATE 325 MG TABLET PO SCH (08:38)
[2018-08-27] MEDS: AMIODARONE 200 MG TABLET PO SCH (08:40)
[2018-08-27] MEDS: AMLODIPINE 5 MG TABLET PO SCH (08:41)
[2018-08-27] MEDS: TIMOLOL OPHTH 0.5%, 5ML LEFTEYE SCH (08:45)
[2018-08-27] MEDS: METOPROLOL SUCCINATE 50 MG TAB.ER.24H PO SCH (08:54)
[2018-08-27 09:00] VITALS: BP_SYST 110; BP_SYST 137; BP_SYST 99; BP_DIAS 64; BP_DIAS 65; BP_DIAS 75
[2018-08-27] MEDS ORDERED: LORazepam 0.5MG TABLET PO PRN (09:30)
[2018-08-27] MEDS ORDERED: SODIUM CHLORIDE 0.9%, 500ML IVBOLUS ONE (09:30)
[2018-08-27] MEDS ORDERED: LORazepam 1MG TABLET PO PRN ×4 (09:30)
[2018-08-27] MEDS ORDERED: LORazepam 2 MG/ML, 1ML IV PRN ×5 (09:30)
[2018-08-27] MEDS: SODIUM CHLORIDE 0.45% 1,000 ML IV SCH ×2 (11:15→17:30)
[2018-08-27 11:30] VITALS: BP 136/84
[2018-08-27] MEDS ORDERED: POTASSIUM CHLORIDE 20 MEQ, MAGNESIUM SULFATE 2 GM, THIAMINE 200 MG, MVI ADULT 10 ML, FO... IV SCH (12:00)
[2018-08-27 14:00] VITALS: BP 146/73
[2018-08-27 20:00] VITALS: BP 138/73
[2018-08-27] MEDS: ZOLPIDEM 5MG TABLET PO PRN (20:50)
[2018-08-27] MEDS: PENTOSAN POLYSULFATE SODIUM 200 MG HOMEMEDPO SCH (20:51)
[2018-08-28 00:53] VITALS: BP 151/83
[2018-08-28] MEDS: SODIUM CHLORIDE 0.45% 1,000 ML IV SCH (01:37)
[2018-08-28] MEDS: GUAIFENESIN 200 MG TABLET PO SCH ×2 (05:07→10:25)
[2018-08-28] MEDS: PANTOPROZOLE 40MG TABLET PO SCH (05:07)
[2018-08-28 06:26] LABS: MEAN CORPUSCULAR HEMOGLOBIN 22.7 pg (27.5-34.5); MEAN CORPUSCULAR HGB CONC 30.5 g/dL (33.2-36.2); MEAN CORPUSCULAR VOLUME 74.3 fL (81-97); MEAN PLATELET VOLUME 8.6 fL (7.4-10.4); PLATELET COUNT 331 x10^3/uL (130-400); RED BLOOD COUNT 3.37 x10^6/uL (4.38-5.82); RED CELL DISTRIBUTION WIDTH 22.5 % (9.4-14.8)
[2018-08-28 06:34] LABS: CHLORIDE 111 mmol/L (98-107)
[2018-08-28 06:49] LABS: BASOPHILS # (AUTO) 0.06 x10^3/uL (0-0.1); BASOPHILS % (AUTO) 1 % (0-1); EOSINOPHILS # (AUTO) 0.77 x10^3/uL (0-0.4); EOSINOPHILS % (AUTO) 10 % (1-7); LYMPHOCYTES # (AUTO) 1.63 x10^3/uL (1-3.4); LYMPHOCYTES % (AUTO) 21 % (22-44); MD SCAN; MONOCYTES # (AUTO) 1.04 x10^3/uL (0.2-0.8); MONOCYTES % (AUTO) 14 % (2-9); NEUTROPHILS # (AUTO) 4.19 x10^3/uL (1.8-6.8); NEUTROPHILS % (AUTO) 55 % (42-75)
[2018-08-28] MEDS: INSULIN LISPRO 100 UNITS/ML, PEN SQ-INSULIN SCH ×2 (07:00→11:00)
[2018-08-28 07:09] LABS: ALANINE AMINOTRANSFERASE 38 U/L (12-78); ALBUMIN 2.2 g/dL (3.4-5.0); ALKALINE PHOSPHATASE 92 U/L (45-117); ANION GAP 6 mmol/L (5-15); BILIRUBIN,TOTAL 0.4 mg/dL (0.2-1.0); CALCIUM 7.6 mg/dL (8.5-10.1); CREATININE 0.98 mg/dL (0.7-1.3); TOTAL PROTEIN 5.7 g/dL (6.4-8.2)
[2018-08-28 07:10] VITALS: BP 148/84
[2018-08-28] MEDS: PENTOSAN POLYSULFATE SODIUM 200 MG HOMEMEDPO SCH (09:00)
[2018-08-28] MEDS: TIMOLOL OPHTH 0.5%, 5ML LEFTEYE SCH (09:00)
[2018-08-28] MEDS ORDERED: PANT40TA5 PO (10:18)
[2018-08-28] MEDS: METOPROLOL SUCCINATE 50 MG TAB.ER.24H PO SCH (10:22)
[2018-08-28] MEDS: FERROUS SULFATE 325 MG TABLET PO SCH (10:22)
[2018-08-28] MEDS: AMLODIPINE 5 MG TABLET PO SCH (10:23)
[2018-08-28] MEDS: AMIODARONE 200 MG TABLET PO SCH (10:23)
== END 2018-08-28 12:34 | DRG 377 ==
LOC: ED 13:53 → EDIP 14:19 → 4WST 17:40 → DCLOUNGE 08-28 12:23
PROVIDERS: ADMIT Hospitalist; ATTEND Hospitalist
PROC: 0DJ08ZZ Inspection of Upper Intestinal Tract, Via Natural or Artificial Opening Endoscopic (ICD-10-PCS; principal; 2018-08-26 15:00)
DX: K28.4 Chronic or unspecified gastrojejunal ulcer with hemorrhage (principal); N17.0 Acute kidney failure with tubular necrosis; D68.9 Coagulation defect, unspecified; D50.0 Iron deficiency anemia secondary to blood loss (chronic); E11.9 Type 2 diabetes mellitus without complications; E78.00 Pure hypercholesterolemia, unspecified; E78.5 Hyperlipidemia, unspecified; K29.71 Gastritis, unspecified, with bleeding; I95.9 Hypotension, unspecified; F10.129 Alcohol abuse with intoxication, unspecified; I10 Essential (primary) hypertension; I48.91 Unspecified atrial fibrillation; K21.9 Gastro-esophageal reflux disease without esophagitis; Z66 Do not resuscitate; Z79.01 Long term (current) use of anticoagulants; Z79.4 Long term (current) use of insulin; Z82.49 Family history of ischemic heart disease and other diseases of the circulatory system; Z83.3 Family history of diabetes mellitus; Z87.01 Personal history of pneumonia (recurrent); Z86.19 Personal history of other infectious and parasitic diseases; Z87.440 Personal history of urinary (tract) infections; Z98.84 Bariatric surgery status; Z79.899 Other long term (current) drug therapy; Z79.84 Long term (current) use of oral hypoglycemic drugs
CPT/HCPCS: 36415; 80048; 80053; 80061; 82962; 83036; 83690; 84439; 84443; 84484; 85025; 85610; 85730; 86850; 86900; 87324; 89055; 93005; 96374; 96375; G0378; J2704; J3370; J3411; J3475; J3480; J7042; C9113; J1815; J7040

== ENCOUNTER 2018-09-28 10:11 | Inpatient (IN) | payer MEDICARE ==
[~2018-09-28] VITALS: Ht 177.8 cm; Wt 95.7 kg
[~2018-09-28 10:11] MED LIST changes: +PANT40TA5 PO
--- NOTE | 2018-09-28 10:25 | NUR ---
DUNIA SANTANA. C/O dizziness. found patient on ground this AM next to bed. Patient does not remember how he got there. Denies pain and no signs of trauma. Patient has been working with his PCP to determine the best BP med for him. He is now on metoprolol, but took two doses of 5mg amlodipine (AM and PM) for high BP yesterday. Patient was instructed by PCP to stop taking amlodipine when he started the metoprolol. MAX noted orthstatic changes from supine to sitting. A&Ox4. at bedside. 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 Will continue to monitor.
[2018-09-28] MEDS ORDERED: SODIUM CHLORIDE FLUSH 10ML SYR IVF ONE (11:00)
--- NOTE | 2018-09-28 11:12 | NUR ---
Patient voided in urinal. UA sent to lab. No other needs at this time.
[2018-09-28 11:30] LABS: MICROSCOPIC NOT IND
[2018-09-28 11:38] LABS: CULTURE INDICATED? NO
[2018-09-28 12:11] LABS: CHLORIDE 105 mmol/L (98-107)
[2018-09-28 12:12] LABS: INTERNATIONAL NORMALIZED RATIO 1.11 (0.93-1.1); PROTHROMBIN TIME 11.6 Seconds (9.6-11.5)
[2018-09-28 12:22] LABS: ALANINE AMINOTRANSFERASE 20 U/L (12-78); ALBUMIN 2.6 g/dL (3.4-5.0); ALKALINE PHOSPHATASE 121 U/L (45-117); ANION GAP 10 mmol/L (5-15); BILIRUBIN,TOTAL 0.3 mg/dL (0.2-1.0); CALCIUM 8.4 mg/dL (8.5-10.1); CREATININE 1.18 mg/dL (0.7-1.3); MEAN CORPUSCULAR HEMOGLOBIN 24.5 pg (27.5-34.5); MEAN CORPUSCULAR HGB CONC 30.5 g/dL (33.2-36.2); MEAN CORPUSCULAR VOLUME 80.3 fL (81-97); MEAN PLATELET VOLUME 7.6 fL (7.4-10.4); PLATELET COUNT 241 x10^3/uL (130-400); RED BLOOD COUNT 3.96 x10^6/uL (4.38-5.82); RED CELL DISTRIBUTION WIDTH 25.5 % (9.4-14.8); TROPONIN I < 0.015 ng/mL (0.000-0.045)
[2018-09-28 12:30] LABS: TOTAL PROTEIN 6.6 g/dL (6.4-8.2)
[2018-09-28 12:46] LABS: BASOPHILS # (AUTO) 0.03 x10^3/uL (0-0.1); BASOPHILS % (AUTO) 1 % (0-1); EOSINOPHILS # (AUTO) 0.32 x10^3/uL (0-0.4); EOSINOPHILS % (AUTO) 6 % (1-7); LYMPHOCYTES % (AUTO) 26 % (22-44); MD SCAN; MONOCYTES # (AUTO) 0.94 x10^3/uL (0.2-0.8); MONOCYTES % (AUTO) 19 % (2-9); NEUTROPHILS % (AUTO) 48 % (42-75)
[2018-09-28] MEDS ORDERED: APIX5TAB PO (12:48)
[2018-09-28] MEDS ORDERED: [UNRECOGNIZED DRUG - OTHER] PO (12:48)
--- NOTE | 2018-09-28 12:52 | NUR ---
VSS. No other needs. Plan is for admit.
--- NOTE | 2018-09-28 13:56 | NUR ---
Resting in [facility]. VSS.
--- NOTE | 2018-09-28 14:49 | NUR ---
Report to ALEC Ramirez.
[2018-09-28 15:46] VITALS: BP 183/84
[2018-09-28] MEDS ORDERED: ACETAMINOPHEN 325 MG TABLET PO PRN (17:00)
[2018-09-28] MEDS ORDERED: TIMOLOL STRENGTH MC SCH (17:00)
[2018-09-28] MEDS ORDERED: DOCUSATE 100 MG CAPSULE PO PRN (17:00)
[2018-09-28] MEDS ORDERED: THIAMINE 200 MG in SODIUM CHLORIDE 0.9% 50 ML IV ONE (17:00)
[2018-09-28] MEDS ORDERED: ONDANSETRON ODT 4 MG PO PRN (17:00)
[2018-09-28] MEDS ORDERED: ONDANSETRON 2MG/ML, 2ML IVPush PRN (17:00)
[2018-09-28 17:21] LABS: TROPONIN I < 0.015 ng/mL (0.000-0.045)
[2018-09-28 20:19] VITALS: BP 132/56
[2018-09-28] MEDS: TIMOLOL OPHTH 0.5%, 5ML LEFTEYE SCH (21:00)
[2018-09-28] MEDS ORDERED: CYAN25009 SL (21:30)
[2018-09-28 21:35] VITALS: BP 169/92
[2018-09-28 21:36] LABS: TROPONIN I 0.018 ng/mL (0.000-0.045)
[2018-09-28 21:37] VITALS: BP 188/86
[2018-09-28 21:40] VITALS: BP 159/81
[2018-09-28 21:45] VITALS: BP 120/82
[2018-09-28] MEDS ORDERED: AFLI2VIA INJ (21:53)
[2018-09-28] MEDS: APIXABAN 5 MG TABLET PO SCH (22:18)
[2018-09-28] MEDS: PANTOPROZOLE 40MG TABLET PO SCH (23:35)
[2018-09-28] MEDS: AMITRIPTYLINE 25 MG TABLET PO SCH (23:35)
[2018-09-28] MEDS: FERROUS SULFATE 325 MG TABLET PO SCH (23:35)
[2018-09-29 01:44] VITALS: BP 145/85
[2018-09-29 03:16] LABS: OCCULT BLOOD POSITIVE (NEGATIVE)
[2018-09-29 04:37] LABS: MEAN CORPUSCULAR HEMOGLOBIN 24.7 pg (27.5-34.5); MEAN CORPUSCULAR HGB CONC 30.9 g/dL (33.2-36.2); MEAN CORPUSCULAR VOLUME 79.9 fL (81-97); PLATELET COUNT 236 x10^3/uL (130-400); RED BLOOD COUNT 3.83 x10^6/uL (4.38-5.82); RED CELL DISTRIBUTION WIDTH 25.8 % (9.4-14.8)
[2018-09-29 04:45] LABS: ALANINE AMINOTRANSFERASE 15 U/L (12-78); ALBUMIN 2.6 g/dL (3.4-5.0); ANION GAP 11 mmol/L (5-15); CALCIUM 7.9 mg/dL (8.5-10.1); CHLORIDE 102 mmol/L (98-107); CREATININE 1.24 mg/dL (0.7-1.3)
[2018-09-29 04:56] LABS: ALKALINE PHOSPHATASE 118 U/L (45-117); BILIRUBIN,TOTAL 0.6 mg/dL (0.2-1.0); TOTAL PROTEIN 6.3 g/dL (6.4-8.2)
[2018-09-29 05:16] LABS: MD YES
[2018-09-29 05:19] LABS: BASOS#(MANUAL) 0.06 x10^3/uL (0-0.1); BASOS% (MANUAL) 1 % (0-1); EOS#(MANUAL) 0.12 x10^3/uL (0.0-0.4); EOS% (MANUAL) 2 % (1-7); LYMPHS% (MANUAL) 19 % (22-44); MONOS#(MANUAL) 0.99 x10^3/uL (0.3-2.7); MONOS% (MANUAL) 17 % (2-9); SEG#(MANUAL) 3.54 x10^3/uL (1.8-6.8); SEGS% (MANUAL) 61 % (42-75)
[2018-09-29 05:20] LABS: <PLATELET ESTIMATE> ADEQUATE; <PLT MORPHOLOGY> NORMAL PLT MORPH; ANISOCYTOSIS 1+; HYPOCHROMIA 1+; MICROCYTOSIS 1+
[2018-09-29] MEDS ORDERED: PANTOPROZOLE 40MG TABLET PO SCH (07:30)
[2018-09-29] MEDS ORDERED: FERROUS SULFATE 325 MG TABLET PO SCH (08:00)
[2018-09-29] MEDS: TAMSULOSIN 0.4 MG CAP.ER.24H PO SCH (09:00)
[2018-09-29] MEDS: THIAMINE 100MG TABLET PO SCH (09:00)
[2018-09-29] MEDS: FERROUS SULFATE 325 MG TABLET PO SCH ×2 (09:00→20:34)
[2018-09-29] MEDS: PANTOPROZOLE 40MG TABLET PO SCH ×2 (09:00→20:34)
[2018-09-29] MEDS: METOPROLOL SUCCINATE 25 MG TAB.ER.24H PO SCH (09:00)
[2018-09-29] MEDS: APIXABAN 5 MG TABLET PO SCH ×2 (09:00→20:35)
[2018-09-29] MEDS: AMIODARONE 200 MG TABLET PO SCH (09:00)
[2018-09-29] MEDS: FOLIC ACID 1 MG TABLET PO SCH (09:00)
[2018-09-29 09:11] VITALS: BP_SYST 101; BP_SYST 125; BP_SYST 172; BP_DIAS 65; BP_DIAS 82; BP_DIAS 83
[2018-09-29 15:00] VITALS: BP 181/91
[2018-09-29] MEDS: LISINOPRIL 10 MG TABLET PO SCH (17:18)
[2018-09-29 19:15] VITALS: BP 168/89
[2018-09-29 19:20] VITALS: BP 171/91
[2018-09-29 19:25] VITALS: BP 152/90
[2018-09-29] MEDS: TIMOLOL OPHTH 0.5%, 5ML LEFTEYE SCH (20:31)
[2018-09-29] MEDS: AMITRIPTYLINE 25 MG TABLET PO SCH (20:34)
[2018-09-30 01:17] VITALS: BP 168/81
[2018-09-30 07:12] VITALS: BP_SYST 115; BP_SYST 156; BP_SYST 93; BP_DIAS 62; BP_DIAS 81
[2018-09-30] MEDS: AMIODARONE 200 MG TABLET PO SCH (08:00)
[2018-09-30] MEDS: PANTOPROZOLE 40MG TABLET PO SCH ×2 (08:00→20:23)
[2018-09-30] MEDS: THIAMINE 100MG TABLET PO SCH (08:00)
[2018-09-30] MEDS: LISINOPRIL 10 MG TABLET PO SCH (08:00)
[2018-09-30] MEDS: TAMSULOSIN 0.4 MG CAP.ER.24H PO SCH (08:00)
[2018-09-30] MEDS: FOLIC ACID 1 MG TABLET PO SCH (08:00)
[2018-09-30] MEDS: METOPROLOL SUCCINATE 25 MG TAB.ER.24H PO SCH (08:00)
[2018-09-30] MEDS: FERROUS SULFATE 325 MG TABLET PO SCH ×2 (08:00→20:22)
[2018-09-30] MEDS: AMLODIPINE 5 MG TABLET PO SCH (08:00)
[2018-09-30 08:15] LABS: BASOPHILS # (AUTO) 0.03 x10^3/uL (0-0.1); BASOPHILS % (AUTO) 1 % (0-1); EOSINOPHILS # (AUTO) 0.18 x10^3/uL (0-0.4); EOSINOPHILS % (AUTO) 3 % (1-7); LYMPHOCYTES # (AUTO) 1.09 x10^3/uL (1-3.4); LYMPHOCYTES % (AUTO) 19 % (22-44); MD MORPH REVIEW ONLY; MEAN CORPUSCULAR HEMOGLOBIN 24.5 pg (27.5-34.5); MEAN CORPUSCULAR HGB CONC 30.4 g/dL (33.2-36.2); MEAN CORPUSCULAR VOLUME 80.4 fL (81-97); MEAN PLATELET VOLUME 7.4 fL (7.4-10.4); MONOCYTES # (AUTO) 1.04 x10^3/uL (0.2-0.8); MONOCYTES % (AUTO) 18 % (2-9); NEUTROPHILS # (AUTO) 3.34 x10^3/uL (1.8-6.8); NEUTROPHILS % (AUTO) 59 % (42-75); PLATELET COUNT 204 x10^3/uL (130-400); RED CELL DISTRIBUTION WIDTH 26.5 % (9.4-14.8)
[2018-09-30 08:19] LABS: ANION GAP 8 mmol/L (5-15); CALCIUM 8.1 mg/dL (8.5-10.1); CHLORIDE 101 mmol/L (98-107)
[2018-09-30 08:51] LABS: ANISOCYTOSIS 1+; MICROCYTOSIS 1+
[2018-09-30 08:52] LABS: <PLATELET ESTIMATE> ADEQUATE; <PLT MORPHOLOGY> NORMAL PLT MORPH; POLYCHROMASIA 1+
[2018-09-30 09:45] LABS: HEMOGLOBIN A1C 6.1 % (4.2-6.3)
[2018-09-30 12:57] LABS: OCCULT BLOOD NEGATIVE (NEGATIVE)
[2018-09-30 13:35] VITALS: BP 146/81
[2018-09-30 20:22] VITALS: BP 170/81
[2018-09-30] MEDS: AMITRIPTYLINE 25 MG TABLET PO SCH (20:22)
[2018-09-30] MEDS: TIMOLOL OPHTH 0.5%, 5ML LEFTEYE SCH (20:22)
[2018-10-01 00:49] VITALS: BP 137/74
[2018-10-01 06:17] LABS: MEAN CORPUSCULAR HEMOGLOBIN 24.2 pg (27.5-34.5); MEAN CORPUSCULAR VOLUME 81.2 fL (81-97); MEAN PLATELET VOLUME 8.1 fL (7.4-10.4); PLATELET COUNT 181 x10^3/uL (130-400); RED BLOOD COUNT 4.08 x10^6/uL (4.38-5.82); RED CELL DISTRIBUTION WIDTH 27.4 % (9.4-14.8)
[2018-10-01 06:18] LABS: MEAN CORPUSCULAR HGB CONC 29.9 g/dL (33.2-36.2)
[2018-10-01 07:40] VITALS: BP 145/79
[2018-10-01] MEDS: LISINOPRIL 10 MG TABLET PO SCH (07:56)
[2018-10-01] MEDS: TIMOLOL OPHTH 0.5%, 5ML LEFTEYE SCH (07:56)
[2018-10-01] MEDS: AMIODARONE 200 MG TABLET PO SCH (07:56)
[2018-10-01] MEDS: FOLIC ACID 1 MG TABLET PO SCH (07:57)
[2018-10-01] MEDS: THIAMINE 100MG TABLET PO SCH (07:57)
[2018-10-01] MEDS: PANTOPROZOLE 40MG TABLET PO SCH ×2 (07:57→20:10)
[2018-10-01] MEDS: AMLODIPINE 5 MG TABLET PO SCH (07:57)
[2018-10-01] MEDS: FERROUS SULFATE 325 MG TABLET PO SCH ×2 (07:57→20:10)
[2018-10-01] MEDS: TAMSULOSIN 0.4 MG CAP.ER.24H PO SCH (07:57)
[2018-10-01] MEDS: METOPROLOL SUCCINATE 25 MG TAB.ER.24H PO SCH (07:57)
[2018-10-01 09:14] LABS: BASOPHILS # (AUTO) 0.03 x10^3/uL (0-0.1); BASOPHILS % (AUTO) 1 % (0-1); EOSINOPHILS # (AUTO) 0.23 x10^3/uL (0-0.4); EOSINOPHILS % (AUTO) 4 % (1-7); LYMPHOCYTES # (AUTO) 1.18 x10^3/uL (1-3.4); LYMPHOCYTES % (AUTO) 22 % (22-44); MD SCAN; MONOCYTES % (AUTO) 19 % (2-9); NEUTROPHILS # (AUTO) 2.95 x10^3/uL (1.8-6.8); NEUTROPHILS % (AUTO) 55 % (42-75)
[2018-10-01 15:45] VITALS: BP_SYST 108; BP_SYST 123; BP_SYST 95; BP_DIAS 65; BP_DIAS 70; BP_DIAS 76
[2018-10-01] MEDS: AMITRIPTYLINE 25 MG TABLET PO SCH (20:09)
[2018-10-01 20:34] VITALS: BP 154/83
[2018-10-02 00:11] VITALS: BP 112/71
[2018-10-02 08:00] VITALS: BP_SYST 153; BP_SYST 158; BP_DIAS 91; BP_DIAS 94
[2018-10-02] MEDS ORDERED: ACETAMINOPHEN 325 MG TABLET PO PRN (09:00)
[2018-10-02] MEDS: TIMOLOL OPHTH 0.5%, 5ML LEFTEYE SCH (09:51)
[2018-10-02] MEDS: SODIUM CHLORIDE 0.9% 1,000 ML IV SCH (09:51)
[2018-10-02] MEDS: FERROUS SULFATE 325 MG TABLET PO SCH ×2 (09:52→21:00)
[2018-10-02] MEDS: AMIODARONE 200 MG TABLET PO SCH (09:52)
[2018-10-02] MEDS: LISINOPRIL 10 MG TABLET PO SCH (09:54)
[2018-10-02] MEDS: FOLIC ACID 1 MG TABLET PO SCH (09:54)
[2018-10-02] MEDS: TAMSULOSIN 0.4 MG CAP.ER.24H PO SCH (09:54)
[2018-10-02] MEDS: PANTOPROZOLE 40MG TABLET PO SCH ×2 (09:54→21:00)
[2018-10-02] MEDS: THIAMINE 100MG TABLET PO SCH (09:55)
[2018-10-02] MEDS: LACTOBACILLUS CHEW TABLET PO SCH ×3 (09:57→21:00)
[2018-10-02] MEDS: METOPROLOL SUCCINATE 25 MG TAB.ER.24H PO SCH (09:57)
[2018-10-02 13:20] VITALS: BP 95/59
[2018-10-02 20:09] VITALS: BP 132/76
[2018-10-02] MEDS: AMITRIPTYLINE 25 MG TABLET PO SCH (21:00)
[2018-10-02] MEDS: METOPROLOL SUCCINATE 50 MG TAB.ER.24H PO SCH (21:00)
[2018-10-03 01:18] VITALS: BP 150/78
[2018-10-03] MEDS: SODIUM CHLORIDE 0.9% 1,000 ML IV SCH ×2 (01:40→20:30)
[2018-10-03 08:00] VITALS: BP 148/80
[2018-10-03] MEDS: TIMOLOL OPHTH 0.5%, 5ML LEFTEYE SCH (08:33)
[2018-10-03] MEDS: AMIODARONE 200 MG TABLET PO SCH (08:36)
[2018-10-03] MEDS: FERROUS SULFATE 325 MG TABLET PO SCH ×2 (08:36→21:13)
[2018-10-03] MEDS: PANTOPROZOLE 40MG TABLET PO SCH ×2 (08:37→21:12)
[2018-10-03] MEDS: LISINOPRIL 10 MG TABLET PO SCH (08:37)
[2018-10-03] MEDS: TAMSULOSIN 0.4 MG CAP.ER.24H PO SCH (08:37)
[2018-10-03] MEDS: THIAMINE 100MG TABLET PO SCH (08:37)
[2018-10-03] MEDS: METOPROLOL SUCCINATE 50 MG TAB.ER.24H PO SCH ×2 (08:37→21:12)
[2018-10-03] MEDS: LACTOBACILLUS CHEW TABLET PO SCH ×3 (08:37→21:13)
[2018-10-03] MEDS: FOLIC ACID 1 MG TABLET PO SCH (08:37)
[2018-10-03 08:41] VITALS: BP_SYST 105; BP_SYST 79; BP_DIAS 55; BP_DIAS 69
[2018-10-03] MEDS ORDERED: ACID1TAB7 PO (10:13)
[2018-10-03] MEDS ORDERED: THIA100T67 PO (10:13)
[2018-10-03] MEDS ORDERED: FERR-51 PO (10:13)
[2018-10-03] MEDS ORDERED: TAMS-11 PO (10:13)
[2018-10-03] MEDS ORDERED: METO-93 PO ×2 (10:13)
[2018-10-03] MEDS ORDERED: LISI-167 PO ×2 (10:13)
[2018-10-03] MEDS ORDERED: TIMO5DRO5 LEFTEYE (10:13)
[2018-10-03 12:23] VITALS: BP 133/79
[2018-10-03 20:44] VITALS: BP 129/69
[2018-10-03] MEDS: AMITRIPTYLINE 25 MG TABLET PO SCH (21:12)
[2018-10-04 01:23] VITALS: BP 127/71
[2018-10-04 08:00] VITALS: BP 158/81
[2018-10-04] MEDS: TIMOLOL OPHTH 0.5%, 5ML LEFTEYE SCH (09:03)
[2018-10-04] MEDS: FERROUS SULFATE 325 MG TABLET PO SCH ×2 (09:03→20:37)
[2018-10-04] MEDS: AMIODARONE 200 MG TABLET PO SCH (09:03)
[2018-10-04] MEDS: LACTOBACILLUS CHEW TABLET PO SCH ×3 (09:04→20:37)
[2018-10-04] MEDS: METOPROLOL SUCCINATE 50 MG TAB.ER.24H PO SCH ×2 (09:04→20:37)
[2018-10-04] MEDS: TAMSULOSIN 0.4 MG CAP.ER.24H PO SCH (09:04)
[2018-10-04] MEDS: FOLIC ACID 1 MG TABLET PO SCH (09:04)
[2018-10-04] MEDS: LISINOPRIL 10 MG TABLET PO SCH (09:04)
[2018-10-04] MEDS: THIAMINE 100MG TABLET PO SCH (09:04)
[2018-10-04] MEDS: PANTOPROZOLE 40MG TABLET PO SCH ×2 (09:04→20:37)
[2018-10-04] MEDS: SODIUM CHLORIDE 0.9% 1,000 ML IV SCH (14:20)
[2018-10-04 14:41] VITALS: BP 133/81
[2018-10-04] MEDS: AMITRIPTYLINE 25 MG TABLET PO SCH (20:37)
[2018-10-04 20:41] VITALS: BP 156/88
[2018-10-05 00:48] VITALS: BP 124/73
[2018-10-05 02:38] LABS: CLOSTRIDIUM DIFFICILE ANTIGEN NEGATIVE; CLOSTRIDIUM DIFFICILE TOXIN NEGATIVE (Negative)
[2018-10-05 05:38] LABS: ANION GAP 6 mmol/L (5-15); CHLORIDE 106 mmol/L (98-107); CREATININE 1.17 mg/dL (0.7-1.3)
[2018-10-05 05:54] LABS: CALCIUM 7.1 mg/dL (8.5-10.1); FREE T4 (FREE THYROXINE) 1.36 ng/dL (0.76-1.46)
[2018-10-05 05:58] LABS: MEAN CORPUSCULAR HGB CONC 30.5 g/dL (33.2-36.2); MEAN CORPUSCULAR VOLUME 82.1 fL (81-97); MEAN PLATELET VOLUME 9.4 fL (7.4-10.4); PLATELET COUNT 185 x10^3/uL (130-400); RED BLOOD COUNT 3.74 x10^6/uL (4.38-5.82); RED CELL DISTRIBUTION WIDTH 27.5 % (9.4-14.8)
[2018-10-05 06:34] LABS: MD YES
[2018-10-05 06:36] LABS: ANISOCYTOSIS 1+; EOS#(MANUAL) 0.24 x10^3/uL (0.0-0.4); EOS% (MANUAL) 5 % (1-7); HYPOCHROMIA 1+; LYMPH#(MANUAL) 1.08 x10^3/uL (1-3.4); LYMPHS% (MANUAL) 23 % (22-44); MONOS#(MANUAL) 0.75 x10^3/uL (0.3-2.7); MONOS% (MANUAL) 16 % (2-9); SEG#(MANUAL) 2.63 x10^3/uL (1.8-6.8); SEGS% (MANUAL) 56 % (42-75)
[2018-10-05 06:37] LABS: MICROCYTOSIS 1+; POLYCHROMASIA 1+
[2018-10-05 06:38] LABS: <PLATELET ESTIMATE> ADEQUATE; <PLT MORPHOLOGY> NORMAL PLT MORPH
[2018-10-05] MEDS: SODIUM CHLORIDE 0.9% 1,000 ML IV SCH (07:40)
[2018-10-05 07:46] VITALS: BP 143/75
[2018-10-05 07:49] VITALS: BP 110/68
[2018-10-05 07:51] VITALS: BP 93/57
[2018-10-05] MEDS: TIMOLOL OPHTH 0.5%, 5ML LEFTEYE SCH (08:25)
[2018-10-05] MEDS: LISINOPRIL 10 MG TABLET PO SCH (08:26)
[2018-10-05] MEDS: LACTOBACILLUS CHEW TABLET PO SCH ×3 (08:26→21:06)
[2018-10-05] MEDS: FOLIC ACID 1 MG TABLET PO SCH (08:26)
[2018-10-05] MEDS: PANTOPROZOLE 40MG TABLET PO SCH ×2 (08:26→21:06)
[2018-10-05] MEDS: TAMSULOSIN 0.4 MG CAP.ER.24H PO SCH (08:26)
[2018-10-05] MEDS: THIAMINE 100MG TABLET PO SCH (08:26)
[2018-10-05] MEDS: METOPROLOL SUCCINATE 50 MG TAB.ER.24H PO SCH ×2 (08:26→21:06)
[2018-10-05] MEDS: AMIODARONE 200 MG TABLET PO SCH (08:26)
[2018-10-05] MEDS: FERROUS SULFATE 325 MG TABLET PO SCH ×2 (08:26→21:06)
[2018-10-05] MEDS ORDERED: DIPHENOXYLATE/ATROPINE TABLET PO PRN (09:00)
[2018-10-05 14:20] VITALS: BP 151/84
[2018-10-05 18:35] VITALS: BP 117/76
[2018-10-05] MEDS: AMITRIPTYLINE 25 MG TABLET PO SCH (21:06)
[2018-10-06 00:08] VITALS: BP 137/76
[2018-10-06] MEDS: SODIUM CHLORIDE 0.9% 1,000 ML IV SCH ×2 (00:16→21:00)
[2018-10-06 08:36] VITALS: BP 126/67
[2018-10-06] MEDS: TIMOLOL OPHTH 0.5%, 5ML LEFTEYE SCH (08:51)
[2018-10-06] MEDS: AMIODARONE 200 MG TABLET PO SCH (08:52)
[2018-10-06] MEDS: FERROUS SULFATE 325 MG TABLET PO SCH ×2 (08:52→20:34)
[2018-10-06] MEDS: FOLIC ACID 1 MG TABLET PO SCH (08:53)
[2018-10-06] MEDS: LACTOBACILLUS CHEW TABLET PO SCH ×3 (08:53→20:34)
[2018-10-06] MEDS: THIAMINE 100MG TABLET PO SCH (08:54)
[2018-10-06] MEDS: PANTOPROZOLE 40MG TABLET PO SCH ×2 (08:54→20:34)
[2018-10-06] MEDS: METOPROLOL SUCCINATE 50 MG TAB.ER.24H PO SCH ×2 (08:54→20:34)
[2018-10-06] MEDS: LISINOPRIL 10 MG TABLET PO SCH (08:54)
[2018-10-06] MEDS: TAMSULOSIN 0.4 MG CAP.ER.24H PO SCH (08:59)
[2018-10-06 14:00] VITALS: BP 107/70
[2018-10-06 18:30] VITALS: BP 151/75
[2018-10-06] MEDS: AMITRIPTYLINE 25 MG TABLET PO SCH (20:33)
[2018-10-07 00:07] VITALS: BP 153/79
[2018-10-07 05:34] LABS: MEAN CORPUSCULAR HEMOGLOBIN 25.5 pg (27.5-34.5); MEAN CORPUSCULAR VOLUME 82.3 fL (81-97); MEAN PLATELET VOLUME 9.5 fL (7.4-10.4); PLATELET COUNT 239 x10^3/uL (130-400); RED BLOOD COUNT 3.76 x10^6/uL (4.38-5.82); RED CELL DISTRIBUTION WIDTH 27.9 % (9.4-14.8)
[2018-10-07 05:37] LABS: ANION GAP 7 mmol/L (5-15); CALCIUM 7.7 mg/dL (8.5-10.1); CHLORIDE 104 mmol/L (98-107)
[2018-10-07 05:39] LABS: CREATININE 1.13 mg/dL (0.7-1.3)
[2018-10-07 06:07] VITALS: BP 130/70
[2018-10-07 06:26] LABS: MD YES
[2018-10-07 06:31] LABS: EOS#(MANUAL) 0.22 x10^3/uL (0.0-0.4); EOS% (MANUAL) 4 % (1-7); LYMPH#(MANUAL) 1.35 x10^3/uL (1-3.4); LYMPHS% (MANUAL) 25 % (22-44); MONOS#(MANUAL) 1.19 x10^3/uL (0.3-2.7); MONOS% (MANUAL) 22 % (2-9); SEG#(MANUAL) 2.65 x10^3/uL (1.8-6.8); SEGS% (MANUAL) 49 % (42-75)
[2018-10-07 06:32] LABS: <PLATELET ESTIMATE> ADEQUATE; <PLT MORPHOLOGY> NORMAL PLT MORPH
[2018-10-07 06:35] LABS: ANISOCYTOSIS 1+; HYPOCHROMIA 1+; MICROCYTOSIS 1+
[2018-10-07] MEDS: TIMOLOL OPHTH 0.5%, 5ML LEFTEYE SCH (08:35)
[2018-10-07] MEDS: TAMSULOSIN 0.4 MG CAP.ER.24H PO SCH (08:36)
[2018-10-07] MEDS: FERROUS SULFATE 325 MG TABLET PO SCH ×2 (08:36→20:47)
[2018-10-07] MEDS: AMIODARONE 200 MG TABLET PO SCH (08:36)
[2018-10-07] MEDS: THIAMINE 100MG TABLET PO SCH (08:37)
[2018-10-07] MEDS: LISINOPRIL 10 MG TABLET PO SCH (08:37)
[2018-10-07] MEDS: METOPROLOL SUCCINATE 50 MG TAB.ER.24H PO SCH ×2 (08:37→20:47)
[2018-10-07] MEDS: FOLIC ACID 1 MG TABLET PO SCH (08:37)
[2018-10-07] MEDS: PANTOPROZOLE 40MG TABLET PO SCH ×2 (08:37→20:47)
[2018-10-07] MEDS: LACTOBACILLUS CHEW TABLET PO SCH ×3 (08:37→20:47)
[2018-10-07 15:37] VITALS: BP 170/80
[2018-10-07] MEDS: SODIUM CHLORIDE 0.9% 1,000 ML IV SCH (16:00)
[2018-10-07 18:24] VITALS: BP 137/68
[2018-10-07] MEDS: AMITRIPTYLINE 25 MG TABLET PO SCH (20:47)
[2018-10-08 00:04] VITALS: BP 133/70
[2018-10-08 08:00] VITALS: BP 148/76
[2018-10-08] MEDS: SODIUM CHLORIDE 0.9% 1,000 ML IV SCH (08:20)
[2018-10-08] MEDS: LACTOBACILLUS CHEW TABLET PO SCH ×2 (08:39→16:00)
[2018-10-08] MEDS: FOLIC ACID 1 MG TABLET PO SCH (08:39)
[2018-10-08] MEDS: AMIODARONE 200 MG TABLET PO SCH (08:39)
[2018-10-08] MEDS: FERROUS SULFATE 325 MG TABLET PO SCH (08:39)
[2018-10-08] MEDS: TIMOLOL OPHTH 0.5%, 5ML LEFTEYE SCH (08:39)
[2018-10-08] MEDS: TAMSULOSIN 0.4 MG CAP.ER.24H PO SCH (08:39)
[2018-10-08] MEDS: THIAMINE 100MG TABLET PO SCH (08:40)
[2018-10-08] MEDS: METOPROLOL SUCCINATE 50 MG TAB.ER.24H PO SCH (08:40)
[2018-10-08] MEDS: LISINOPRIL 10 MG TABLET PO SCH (08:40)
[2018-10-08] MEDS: PANTOPROZOLE 40MG TABLET PO SCH (08:40)
[2018-10-08 13:53] VITALS: BP 102/68
[2018-10-08 13:54] VITALS: BP 67/49
[2018-10-08] MEDS ORDERED: METO25TA91 PO (17:25)
[2018-10-08] MEDS ORDERED: FLUD0.1T PO (17:25)
== END 2018-10-08 18:18 | disposition home health service (06) | DRG 312 ==
LOC: ED 10:53 → EDIP 13:43 → 4EST 15:20
PROVIDERS: ADMIT Internal Medicine; ATTEND Internal Medicine
DX: I95.1 Orthostatic hypotension (principal); J96.10 Chronic respiratory failure, unspecified whether with hypoxia or hypercapnia; D68.69 Other thrombophilia; E87.2 Acidosis; E87.1 Hypo-osmolality and hyponatremia; G31.2 Degeneration of nervous system due to alcohol; E86.0 Dehydration; I10 Essential (primary) hypertension; E11.9 Type 2 diabetes mellitus without complications; E78.00 Pure hypercholesterolemia, unspecified; E78.5 Hyperlipidemia, unspecified; F10.20 Alcohol dependence, uncomplicated; G47.30 Sleep apnea, unspecified; I45.10 Unspecified right bundle-branch block; I48.91 Unspecified atrial fibrillation; I65.23 Occlusion and stenosis of bilateral carotid arteries; J44.9 Chronic obstructive pulmonary disease, unspecified; K21.9 Gastro-esophageal reflux disease without esophagitis; N40.0 Benign prostatic hyperplasia without lower urinary tract symptoms; Z82.49 Family history of ischemic heart disease and other diseases of the circulatory system; Z87.01 Personal history of pneumonia (recurrent); Z87.11 Personal history of peptic ulcer disease; Z87.891 Personal history of nicotine dependence; Z91.81 History of falling; Z98.84 Bariatric surgery status; Z99.81 Dependence on supplemental oxygen
CPT/HCPCS: 36415; 70450; 71045; 80048; 80053; 81003; 82272; 83036; 83605; 83735; 84100; 84439; 84443; 84484; 85025; 85610; 87324; 93005; 93880; 99285; G0378; J3411; 92523-GN; J7030

== ENCOUNTER → 2020-03-16 | Outpatient (CLI) | payer MEDICARE ==
[~2020-03-16] MED LIST changes: +AFLI2VIA INJ; +AMLO-211 PO; -AMLO10TA8 PO; +CYAN25009 SL; -DIGO250T PO; +DIGO250T3 PO; +FERR324T5 PO; +FLUD0.1T PO; -GUAI200T3 PO; +GUAI200T37 PO; +METO-93 PO; +METO25TA91 PO; -PANT40TA5 PO; +PANT40TA6 PO; +TAMS-11 PO; +THIA100T67 PO; +TIMO5DRO5 LEFTEYE; +VIT1CAPS42 PO; +[UNRECOGNIZED DRUG - OTHER] PO
== END | disposition home or self-care (01) ==
LOC: CVU 12:29
PROVIDERS: ATTEND Internal Medicine Cardiovascular Disease
DX: I08.0 Rheumatic disorders of both mitral and aortic valves (principal); I65.23 Occlusion and stenosis of bilateral carotid arteries; I10 Essential (primary) hypertension
CPT/HCPCS: 93306; 93880

== ENCOUNTER → 2020-03-27 | Outpatient (CLI) | payer MEDICARE | END | disposition home or self-care (01) | LOC: CLISVCS 12:04 | PROVIDERS: ATTEND Anesthesiology | DX: Z20.828 Contact with and (suspected) exposure to other viral communicable diseases (principal) | CPT/HCPCS: 87635 ==

== ENCOUNTER 2020-03-31 06:09 | Day surgery (SDC) | payer MEDICARE ==
[~2020-03-31] VITALS: Ht 177.8 cm; Wt 97.7 kg
[2020-03-31] MEDS ORDERED: SODIUM CHLORIDE 0.9% 1,000 ML IV SCH (06:30)
[2020-03-31] MEDS ORDERED: APIX5TAB PO (06:34)
[2020-03-31] MEDS ORDERED: METO25TA91 PO (06:36)
[2020-03-31 06:39] VITALS: BP 125/80
[2020-03-31] MEDS ORDERED: LEVO50TA5 PO (06:39)
[2020-03-31] MEDS ORDERED: PLEASE ENTER HEIGHT AND WEIGHT MC SCH (07:00)
[2020-03-31] MEDS ORDERED: PROPOFOL 10 MG/ML, 20ML ONE (16:28)
== END 2020-03-31 09:06 | disposition home or self-care (01) ==
LOC: CACL 06:09
PROVIDERS: ATTEND Internal Medicine Cardiovascular Disease
DX: I48.0 Paroxysmal atrial fibrillation (principal); I34.0 Nonrheumatic mitral (valve) insufficiency; I35.8 Other nonrheumatic aortic valve disorders; I12.9 Hypertensive chronic kidney disease with stage 1 through stage 4 chronic kidney disease, or unspecified chronic kidney disease; N18.2 Chronic kidney disease, stage 2 (mild); E11.22 Type 2 diabetes mellitus with diabetic chronic kidney disease; E66.9 Obesity, unspecified; E78.5 Hyperlipidemia, unspecified; F17.210 Nicotine dependence, cigarettes, uncomplicated; Z68.30 Body mass index [BMI] 30.0-30.9, adult; Z79.899 Other long term (current) drug therapy; Z72.89 Other problems related to lifestyle; Z79.01 Long term (current) use of anticoagulants; Z82.49 Family history of ischemic heart disease and other diseases of the circulatory system
CPT/HCPCS: 71046; 93005; 93312; 93320; 93325; J2704; 92960

== ENCOUNTER 2021-01-01 08:04 | Inpatient (IN) | payer MEDICARE ==
[~2021-01-01] VITALS: Ht 180.3 cm; Wt 96.4 kg
[~2021-01-01 08:04] MED LIST changes: +LEVO50TA5 PO; -VALS1TAB19 PO; +VALS1TAB20 PO; -VANC1VIA3 PO; +VANC1VIA36 PO
[2021-01-01] MEDS ORDERED: [UNRECOGNIZED DRUG - OTHER] TP (08:52)
[2021-01-01] MEDS ORDERED: TAMS-11 PO (08:52)
[2021-01-01 08:53] VITALS: BP 121/91
[2021-01-01] MEDS ORDERED: SODIUM CHLORIDE 0.9%, 500ML IVBOLUS ONE (09:00)
[2021-01-01] MEDS ORDERED: CEFAZOLIN 1,000 MG IVPush ONE (09:00)
[2021-01-01] MEDS ORDERED: ONDANSETRON 2MG/ML, 2ML IVPush PRN (09:00)
[2021-01-01 09:29] LABS: BASOPHILS % (AUTO) 0 % (0-1); EOSINOPHILS % (AUTO) 3 % (1-7); LYMPHOCYTES % (AUTO) 34 % (22-44); MEAN CORPUSCULAR HEMOGLOBIN 30.7 pg (27.5-34.5); MEAN CORPUSCULAR HGB CONC 33.6 g/dL (33.2-36.2); MEAN PLATELET VOLUME 9.2 fL (7.4-10.4); MONOCYTES % (AUTO) 10 % (2-9); NEUTROPHILS % (AUTO) 54 % (42-75); PLATELET COUNT 102 x10^3/uL (130-400); RED BLOOD COUNT 4.81 x10^6/uL (4.38-5.82); RED CELL DISTRIBUTION WIDTH 14.7 % (9.4-14.8)
[2021-01-01 09:34] LABS: INTERNATIONAL NORMALIZED RATIO 1.13 (0.93-1.1)
[2021-01-01 09:36] LABS: ANION GAP 6 mmol/L (5-15); CALCIUM 8.9 mg/dL (8.5-10.1); CHLORIDE 104 mmol/L (98-107)
[2021-01-01 09:41] LABS: CREATININE 1.56 mg/dL (0.7-1.3)
[2021-01-01] MEDS ORDERED: FENTANYL PF 250 MCG/5ML ONE (10:30)
[2021-01-01] MEDS ORDERED: PROPOFOL 10 MG/ML, 20ML ONE (10:38)
[2021-01-01] MEDS ORDERED: SUCCINYLCHOLINE 20 MG/ML, 10ML ONE (10:38)
[2021-01-01] MEDS ORDERED: HEPARIN 1,000 UNITS/ML, 10ML ONE (10:38)
[2021-01-01] MEDS ORDERED: ROCURONIUM 10MG/ML,5ML ONE (10:38)
[2021-01-01] MEDS ORDERED: CEFAZOLIN 1,000 MG ONE (10:39)
[2021-01-01] MEDS ORDERED: ONDANSETRON 2MG/ML, 2ML ONE (10:39)
[2021-01-01] MEDS ORDERED: FLUDROCORTISONE 0.1 MG TABLET PO PRN (12:00)
[2021-01-01] MEDS ORDERED: METOPROLOL SUCCINATE 25 MG TAB.ER.24H PO PRN (12:00)
[2021-01-01] MEDS ORDERED: ONDANSETRON 2MG/ML, 2ML IV PRN (12:30)
[2021-01-01] MEDS ORDERED: MAALOX/HYOSCYAMINE/LIDOCAINE 45 ML BTL PO PRN (12:30)
[2021-01-01] MEDS ORDERED: SODIUM CHLORIDE 0.9% 1,000 ML IV SCH (12:30)
[2021-01-01] MEDS ORDERED: ACETAMINOPHEN 325 MG TABLET PO PRN (12:30)
[2021-01-01 14:50] VITALS: BP 130/83
[2021-01-01] MEDS: PANTOPRAZOLE 40MG TABLET PO SCH (16:54)
[2021-01-01] MEDS ORDERED: DIPHENHYDRAMINE 25 MG CAPSULE PO PRN (20:00)
[2021-01-01] MEDS: APIXABAN 5 MG TABLET PO SCH (20:45)
[2021-01-01] MEDS: TAMSULOSIN 0.4 MG CAP.ER.24H PO SCH (20:45)
[2021-01-01 20:47] VITALS: BP 120/78
[2021-01-01] MEDS ORDERED: AMITRIPTYLINE 25 MG TABLET PO SCH (21:30)
[2021-01-02 02:08] VITALS: BP 99/62
[2021-01-02 05:52] LABS: BASOPHILS % (AUTO) 1 % (0-1); EOSINOPHILS % (AUTO) 2 % (1-7); LYMPHOCYTES % (AUTO) 25 % (22-44); MEAN CORPUSCULAR HEMOGLOBIN 30.3 pg (27.5-34.5); MEAN CORPUSCULAR HGB CONC 33.7 g/dL (33.2-36.2); MONOCYTES % (AUTO) 11 % (2-9); NEUTROPHILS % (AUTO) 61 % (42-75); PLATELET COUNT 94 x10^3/uL (130-400); RED BLOOD COUNT 4.19 x10^6/uL (4.38-5.82); RED CELL DISTRIBUTION WIDTH 14.6 % (9.4-14.8)
[2021-01-02] MEDS ORDERED: LEVOTHYROXINE 50 MCG TABLET PO SCH (06:00)
[2021-01-02 06:02] LABS: ANION GAP 6 mmol/L (5-15); CHLORIDE 107 mmol/L (98-107); CREATININE 1.25 mg/dL (0.7-1.3)
[2021-01-02] MEDS: PANTOPRAZOLE 40MG TABLET PO SCH (06:11)
[2021-01-02] MEDS: APIXABAN 5 MG TABLET PO SCH (08:27)
[2021-01-02] MEDS: TAMSULOSIN 0.4 MG CAP.ER.24H PO SCH (08:27)
[2021-01-02 08:30] VITALS: BP 111/67
[2021-01-02] MEDS ORDERED: AMIODARONE 200 MG TABLET PO SCH (09:00)
[2021-01-02] MEDS ORDERED: ACET325T26 PO (10:11)
== END 2021-01-02 13:49 | disposition home or self-care (01) | DRG 273 ==
LOC: ORIP 08:04 → 5SO 14:31
PROVIDERS: ADMIT Internal Medicine Cardiovascular Disease; ATTEND Internal Medicine Cardiovascular Disease
PROC: B24BZZ4 Ultrasonography of Heart with Aorta, Transesophageal (ICD-10-PCS; 2021-01-01)
PROC: 02L73DK Occlusion of Left Atrial Appendage with Intraluminal Device, Percutaneous Approach (ICD-10-PCS; principal; 2021-01-01 11:30)
DX: I48.91 Unspecified atrial fibrillation (principal); Z00.6 Encounter for examination for normal comparison and control in clinical research program; I50.21 Acute systolic (congestive) heart failure; D68.69 Other thrombophilia; I13.0 Hypertensive heart and chronic kidney disease with heart failure and stage 1 through stage 4 chronic kidney disease, or unspecified chronic kidney disease; Z20.822 Contact with and (suspected) exposure to COVID-19; E11.22 Type 2 diabetes mellitus with diabetic chronic kidney disease; E78.2 Mixed hyperlipidemia; I48.0 Paroxysmal atrial fibrillation; N18.2 Chronic kidney disease, stage 2 (mild); Z79.01 Long term (current) use of anticoagulants; L85.0 Acquired ichthyosis
CPT/HCPCS: 33340; 36415; 80048; 83880; 85025; 85347; 85610; 86850; 86900; 87635; 93005; 93325; 93355; C1760; C1766; C1769; C1893; C1894; G0378; J0690; J1644; J2405; J2704; J3010; Q9957; C8924; J0330; Q0163; Q9967